=== PATIENT | male | born 1945 | race Caucasian/White ===

== ENCOUNTER 2017-12-17 18:03 | Inpatient (IN) | payer MEDICARE, OTHER ==
[2017-12-17 18:53] LABS: ABS Basophils 0 10^3/ul (0-0.2); ABS Eosinophils 0.2 10^3/ul (0-0.6); ABS Lymphocytes 1.3 10^3/ul (1.0-4.8); ABS Monocytes 0.6 10^3/ul (0-0.8); ABS Neutrophils 5.6 10^3/ul (1.5-7.7); ABS Nucleated RBC 0 10^3/ul; Eosinophil % 2.2 % (0-6); Hematocrit 44 % (42-52); Hemoglobin 14.7 g/dl (14.0-18.0); Lymphocyte % 16.9 % (25-47); Mean Corpuscular HGB Conc 34 g/dl (31-36); Mean Corpuscular Hemoglobin 30 pg (27-31); Mean Corpuscular Volume 90 fL (80-94); Mean Platelet Volume 9 um3 (7.4-10.4); Nucleated Red Blood Cells % 0; Platelet Count 183 10^3/ul (150-450); Red Blood Count 4.83 10^6/ul (4.0-5.4); Red Cell Distribution Width 14 % (10.5-15); White Blood Count 7.6 10^3/ul (3.5-10.8)
[2017-12-17 19:07] LABS: EGFR Non-African American 76.1 (>60)
--- NOTE | 2017-12-17 19:32 | RAD ---
HISTORY: Syncope COMPARISONS: August 30, 2015 VIEWS: 4: Frontal dual-energy and lateral views of the chest. FINDINGS: CARDIOMEDIASTINAL SILHOUETTE: The cardiomediastinal silhouette is normal. DENNIS: The dennis are normal. PLEURA: The costophrenic angles are sharp. No pleural abnormalities are noted. LUNG PARENCHYMA: The lungs are clear. ABDOMEN: The upper abdomen is clear. There is no subphrenic gas. BONES AND SOFT TISSUES: No bone or soft tissue abnormalities are noted. OTHER: None. IMPRESSION: NO ACTIVE CARDIOPULMONARY DISEASE.
[2017-12-17] MEDS ORDERED: Ondansetron INJ* 2 MG/ML VIAL IV PRN (19:51)
[2017-12-17] MEDS ORDERED: NS 0.9% 1000 ML* 1,000 ML IV SCH (20:00)
--- NOTE | 2017-12-17 20:16 | RAD ---
HISTORY: Syncope versus seizure COMPARISONS: None TECHNIQUE: Multiple contiguous axial CT scans were obtained of the head without intravenous contrast. FINDINGS: HEMORRHAGE/INFARCT: There is no hemorrhage or acute infarct. MASSES/SHIFT: There is no mass or shift. EXTRA-AXIAL SPACES: There are no extra-axial fluid collections. SULCI AND VENTRICLES: The sulci and ventricles are normal in size and position for the patient's stated age. CEREBRUM: There are no focal parenchymal abnormalities. BRAINSTEM: There are no focal parenchymal abnormalities. CEREBELLUM: There are no focal parenchymal abnormalities. VESSELS: There is calcification of the cavernous segments of the internal carotid arteries bilaterally. The basilar artery is tortuous. PARANASAL SINUSES: The paranasal sinuses are clear. ORBITS: The orbits are unremarkable. BONES AND SOFT TISSUE: No bone or soft tissue abnormalities are noted. OTHER: None IMPRESSION: NO ACUTE INTRACRANIAL PATHOLOGY.
--- NOTE | 2017-12-17 20:58 | ED ---
Bhavesh Campbell Jennifer, scribed for Cosme Shaver MD on 12/17/17 at 1816 . Syncope/Near Syncope - HPI Summary HPI Summary: The patient is a 72 year old male who presents with two episodes of syncope in the past two days. The patient describes that he was sitting in a chair when it began to feel like he was dreaming, his eyes rolled back, he began snoring and gasping for breath, and then he fainted. There was no warning before the episodes. The patient adds that he had shortness of breath during the episode that felt like a panic attack, but denies shortness of breath in the ED. The patient additionally complains of his left ear being semi-plugged. He denies chest pain. - History Of Current Complaint Time Seen by Provider: 12/17/17 18:08 Hx Obtained From: Patient Onset/Duration: Sudden Onset, Lasting Days - two days, Still Present Timing: Frequency Of Episodes - 2 Context: Witnessed, Loss Of Consciousness Activity At Onset: At Rest Associated Head Trauma: No Aggravating Factor(s): Nothing Alleviating Factor(s): Nothing Associated Signs And Symptoms: Negative - Chest pain,, Shortness Of Breath, Other - Left ear ache - Allergies/Home Medications Allergies/Adverse Reactions: Allergies Allergy/AdvReac Type Severity Reaction Status Date / Time aspirin Allergy See Comment Verified 12/17/17 18:19 Home Medications: Home Medications Atenolol TAB* [Tenormin TAB* 25 MG] 25 mg PO BEDTIME 12/17/17 [History Confirmed 12/17/17] Clopidogrel TAB* [Plavix TAB*] 75 mg PO BEDTIME 12/17/17 [History Confirmed 06/26] Simvastatin TAB(NF) [Zocor(NF)] 20 mg PO BEDTIME 12/17/17 [History Confirmed 06/26] PMH/Surg Hx/FS Hx/Imm Hx Endocrine/Hematology History: Denies: Hx Diabetes Cardiovascular History: Reports: Other Cardiovascular Problems/Disorders - hardening of the arteries Denies: Hx Hypertension - Family History Known Family History: Negative: Diabetes - Social History Hx Tobacco Use: No Review of Systems Positive: Ear Ache - Left ear feels plugged Negative: Chest Pain Positive: Shortness Of Breath Positive: Syncope All Other Systems Reviewed And Are Negative: Yes Physical Exam - Summary Physical Exam Summary: Appearance: Well-appearing, Well-nourished Skin: Warm, Dry, No rash Eyes: Normal, PERRL, EOMI, sclera anicteric ENT: Normal Neck: Supple, nontender Respiratory: Clear to auscultation Cardiovascular: S1, S2, no murmur, no rub, no gallop Abdomen: Soft, nontender, no organomegaly Bowel sounds: Present Musculoskeletal: Normal, Strength/ROM Intact, no edema, pulses symmetrical Neurological: Normal, A&Ox3, cranial nerves II-XII WNL, follows commands, gait not tested, sensation intact to pin and light touch Psychiatric: affect normal, behavior appropriate, dressed appropriately, judgment intact Triage Information Reviewed: Yes Vital Signs Reviewed: Yes Diagnostics - Laboratory Result Diagrams: 12/17/17 18:40 12/17/17 18:40 Lab Statement: Any lab studies that have been ordered have been reviewed, and results considered in the medical decision making process. - Radiology CXR Xray Interpretation: No Acute Changes - NO ACTIVE CARDIOPULMONARY DISEASE. Dr. Shaver has reviewed this report. Radiology Interpretation Completed By: Radiologist - Additional Comments Diagnostic Additional Comments: EKG taken at 18:12. Sinus rhythm at 60 BPM. Trifascicular block, RBBB, left anterior block, prolonged IA interval, left ventricular hypertrophy. Second EKG taken at 18:28. No significant changes. Course/Dx Assessment/Plan: The patient is a 72 year old male who presents with two episodes of syncope in the past two days. In the ED course the patient was given. Bloodwork was obtained. EKG shows sinus rhythm at 60 BPM, trifascicular block, RBBB, left anterior block, prolonged IA interval, and left ventricular hypertrophy. CXR obtained. The patient is diagnosed with syncope and possible complete heart block. The patient was admitted to [facility]. - Diagnoses Provider Diagnoses: Syncope, Possible complete heart block Discharge - Discharge Plan Condition: Good Disposition: ADMITTED TO [facility] Referrals: Jaclyn Hartley MD [Primary Care Provider] - Additional Instructions: RETURN TO THE EMERGENCY DEPARTMENT FOR CHANGING OR WORSENING SYMPTOMS. The documentation as recorded by the Bhavesh guzman Jennifer accurately reflects the service I personally performed and the decisions made by Sivakumar craig Matthew, MD.
[2017-12-17] MEDS ORDERED: Atenolol TAB* 25 MG PO SCH (21:00)
[2017-12-17] MEDS: Heparin VIAL(*) 5000 UNITS/ML VIAL (FIVE THOUSAND) SUBCUT SCH (22:00)
[2017-12-17] MEDS: Atorvastatin* 10 MG TAB PO SCH (22:00)
[2017-12-17] MEDS: Clopidogrel TAB* 75 MG PO SCH (22:00)
--- NOTE | 2017-12-17 23:21 | HP ---
CC: Dr. Hartley; Dr. Wu Baca * HISTORY AND PHYSICAL: DATE OF ADMISSION: 12/17/17 PRIMARY CARE PROVIDER: Dr. Hartley. HUMANE OFFICER: Dr. Wu Baca in [place], [place] at [facility]. CHIEF COMPLAINT: Altered mental status. HISTORY OF PRESENT ILLNESS: Mr. Mars is a 72-year-old male, who has a history of coronary artery disease that is being managed medically, obstructive sleep apnea, and history of visual migraines, who presents to the emergency room after having a second episode of altered mental status in 3 days. The patient states over the last 1 year, he has now had 5 episodes of altered mental status. Most of these have occurred in the distant past 1 year, however, on this past 12/15/17, the patient states that he had had a visual migraine earlier in the day. He then was in a seated upright position when he suddenly felt very lightheaded. He stated that he felt as if he could not control his body. He was reportedly unresponsive per his . The patient contacted his primary care provider and was seen yesterday for an appointment. At that point, nothing new was done. The patient states earlier on the day of admission, the patient was in a seated upright position when he again suddenly started to feel lightheaded. His looked over at him as she noted him to have sonorous respirations and it seemed like his breathing was labored. The next thing she knew, his head was going backwards and his eyes were deviated to the right. The patient came to after a few seconds. He then began to sweat profusely. The patient then again put his head back and his eyes again deviated to the right. At this time, she was standing over top of him and noted that his eyes were open but he was not responding. Again, this lasted for a few seconds. The patient again came back fairly quickly. The patient does state that he felt nausea following these 2 episodes today. Additionally, the patient stated that his breathing felt very shallow after coming to. On Thursday, he noted that he was profusely diaphoretic and had to change his clothes. Today, he was sweaty but it was not as severe. PAST MEDICAL HISTORY: 1. Coronary artery disease. 2. Obstructive sleep apnea. 3. History of visual migraines. 4. Bilateral inguinal hernia repair with the left being repaired x2. 5. Right hand surgery. MEDICATIONS: 1. Zocor 20 mg p.o. q.h.s. 2. Plavix 75 mg p.o. q.h.s. 3. Atenolol 25 mg p.o. q.h.s. ALLERGIES: The patient is sensitive to aspirin in that he gets frequent nose bleeds when he takes this. FAMILY HISTORY: Mom at age of 95 of "old age." Dad at the age of 49 , he had a stroke. SOCIAL HISTORY: The patient smokes an occasional cigar during summer. He drinks roughly 1 beer per evening. 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 He is . His , Gali, is his healthcare proxy. He has 3 children. REVIEW OF SYSTEMS: The patient denies any fevers, chills, or anorexia. No chest pain. No palpitations. No edema. No cough. No true shortness of breath , but again he noted shallow breathing after coming to following the events earlier today. He admitted to nausea as noted above. No abdominal pain. He does state that following these last 2 episodes of altered mental status, he did have to have a bowel movement. He denies any hematochezia, no hematuria, no dysuria, no focal weakness, or sensory loss. The patient's stated that she had him stick out his tongue and smile. She noted no facial asymmetry. He had no slurred speech. The patient does admit to having what sounds to be scintillating scotoma on 12/15/17. No . No joint pains or muscle pains out of ordinary. No rashes. No anxiety or depression. PHYSICAL EXAMINATION GENERAL: The patient is a well-developed, elderly male, sitting up in the stretcher, in no acute distress. VITAL SIGNS: Blood pressure 121/58, pulse 67, respirations 16, temp 96.8, O2 sat 96% on room air. HEENT: Pupils are equal and round. Extraocular muscles intact. Oropharynx is clear. Oral mucosa is moist. There is no submandibular, cervical, or supraclavicular adenopathy. Thyroid is not enlarged. No thyroid nodules noted. PULMONARY: Lungs are clear to auscultation bilaterally. CARDIAC: Normal S1, S2. Heart rate is irregular and on telemetry, it appears that the patient is having atrial bigeminy. There is minimal lower extremity edema bilaterally. ABDOMEN: Bowel sounds are present. Abdomen is soft, nontender, nondistended. MUSCULOSKELETAL: There is no cyanosis or clubbing of the digits. There is full active range of motion of all 4 extremities. NEURO: Cranial nerves II through XII were grossly intact. Sensation is intact to light touch throughout. Strength is 5/5 and symmetric in both upper and lower extremities bilaterally. PSYCH: The patient is alert. He is oriented x3. Affect appears appropriate. SKIN: Warm and dry. There are no rashes. DIAGNOSTIC STUDIES/LAB DATA: WBC 7.6, hemoglobin 14.7, hematocrit 44, platelets 183. Sodium 136, potassium 4.4, chloride 104, CO2 26, BUN 15, creatinine 0.97, glucose 103, calcium 9.2. Bilirubin 0.5, AST 18, ALT 21, alk phos 49. Troponin 0. Albumin 4.0. TSH 3.29. Chest x-ray: No active cardiopulmonary disease. EKG reveals normal sinus rhythm with a right bundle branch block and left anterior fascicular block. ASSESSMENT AND PLAN: Mr. Mars is a 72-year-old male with a history of medically managed coronary artery disease and obstructive sleep apnea, who presented to the emergency room today after having a second episode of altered mental status within 3 days where he begins to feel lightheaded, then has his head go back and eyes deviate to the right followed by profuse diaphoresis and nausea. 1. Altered mental status. The etiology of this is not completely clear. Differential diagnosis includes true seizure versus syncope with convulsion. The patient was in an upright position each time that these episodes happened. The lightheadedness as a prodrome as well as the diaphoresis and nausea make me feel that vasovagal syncope is likely; however, having his head go back and eyes deviate to the right makes me concern for seizure along with the sonorous respirations. The patient will have an echocardiogram and be monitored on telemetry. I will get CT scan of the brain. The patient will also undergo EEG evaluation. A Neurology consultation will be requested. 2. Coronary artery disease. At this point, the patient will be maintained on his usual home medication regimen. He has no complaints. 3. Obstructive sleep apnea. We will continue CPAP for sleep. 4. DVT prophylaxis. According to the Adult Thrombosis Prophylaxis Risk Factor Assessment Guide, a total risk factor score of 3 makes him high risk. He will be placed on heparin 5000 units subcutaneous q.12 hours. 5. Code status is full. Again, his , Gali, is his healthcare proxy. TIME SPENT: Sixty-five minutes was spent admitting this patient. [id number]/[facility] #: [id number] JEOVANY
[2017-12-18] MEDS: Heparin VIAL(*) 5000 UNITS/ML VIAL (FIVE THOUSAND) SUBCUT SCH ×2 (08:48→20:16)
--- NOTE | 2017-12-18 14:19 | ECHO ---
Patient: WILLIAM MAYORGA [facility] Rec#: [id number] : 1945 Date: 12/18/2017 Age: 72y Height: 180.34 cm / 71.0 in Weight: 88.45 kg / 194.9 lbs Sex: M BSA: 2.09 Room#: [facility] Admit Date#: 12/17/2017 Type: Inpatient Referring: Natalia Ziegler DO Reading: Gael Ventura MD [facility]an[facility]ch[facility] Indication: Syncope BP: 111/63 HR: 69 Rhythm: NSR with PACs Findings History: CAD on medical management, TIMOTHY with CPAP, bilateral inguinal hernia. Technical Comments: The study quality is good. Completed at 1015. Left Ventricle: The left ventricular chamber size is mildly dilated. Mild concentric left ventricular hypertrophy is observed.sigmoid septum. Global left ventricular wall motion and contractility are within normal limits. There is normal left ventricular systolic function. The estimated ejection fraction is 55-60%. Abnormal left ventricular diastolic function is observed. Abnormal left ventricular diastolic filling is observed, consistent with impaired relaxation. Left Atrium: The left atrium is mildly dilated. Right Ventricle: Moderator Band present. The right ventricle is moderately dilated. The right ventricular global systolic function is low normal. Right Atrium: The right atrium is mild to moderately dilated. Aortic Valve: The aortic valve is trileaflet. The aortic valve leaflets are mildly thickened. There is mild aortic regurgitation. There is no evidence of aortic stenosis. Mitral Valve: The mitral valve leaflets are mildly thickened.with mild buckling of the leaflets; no definite prolapse. There is mild to moderate mitral regurgitation. There is no evidence of mitral stenosis. Tricuspid Valve: The tricuspid valve leaflets are mildly thickened. There is mild tricuspid regurgitation. The right ventricular systolic pressure is estimated at 39 mmHg. There is evidence of mild pulmonary hypertension. There is no tricuspid stenosis. Pulmonic Valve: The pulmonic valve appears normal. There is trace to mild pulmonic regurgitation. There is no pulmonic stenosis. Pericardium: There is no significant pericardial effusion. Aorta: There is moderate dilatation of the ascending aorta. There is no dilatation of the aortic arch. The aortic root is normal in size. Pulmonary Artery: The main pulmonary artery appears normal. Venous: The inferior vena cava is dilated. There is a greater than 50% respiratory change in the inferior vena cava dimension. Summary: There was not any prior study for comparison. Conclusions Mild concentric left ventricular hypertrophy is observed.sigmoid septum. The estimated ejection fraction is 55-60%. Abnormal left ventricular diastolic filling is observed, consistent with impaired relaxation. The left atrium is mildly dilated. The right ventricle is moderately dilated. The right ventricular global systolic function is low normal. The right atrium is mild to moderately dilated. There is mild aortic regurgitation. There is mild to moderate mitral regurgitation. The mitral valve leaflets are mildly thickened.with mild buckling of the leaflets; no definite prolapse. There is mild tricuspid regurgitation. There is evidence of mild pulmonary hypertension. There is moderate dilatation of the ascending aorta. Measurements Name Value Normal Range RVIDd (AP) 2D 3.3 cm (0.9 - 2.6) RVDdMajor (2D) 6 cm (2.2 - 4.4) RAd ISD 4CH 4.8 cm (3.4 - 4.9) RA (A4C)W 5.9 cm (2.9 - 4.6) IVSd (2D) 1.2 cm (0.6 - 1) LVPWd (2D) 1.1 cm (0.6 - 1) LVIDd (2D) 5.5 cm (3.6 - 5.4) LVIDs (2D) 3.4 cm - LV FS (2D) 38 % (25 - 45) Aortic Annulus 2.1 cm (1.4 - 2.6) Ao root diameter (2D) 3.5 cm (2.1 - 3.5) Ascending Ao 4.1 cm (2.1 - 3.4) Aortic arch 2.7 cm (1.8 - 3.4) LA dimension (AP) 2D 3.8 cm (2.3 - 3.8) LAd ISD 4CH 4.8 cm (2.9 - 5.3) LA ISD 4CH W 4.3 cm (2.5 - 4.5) Name Value Normal Range LA ESV SP 4CH (A/L) 71 ml - LA ESV SP 2CH (A/L) 82 ml - LA ESV BP (A/L) 77 ml - LA ESV BP (A/L) index 40 ml/m2 - LA ESV SP 4CH (MOD) 62 ml - LA ESV SP 2CH (MOD) 75 ml - Name Value Normal Range MV E-wave Vmax 0.62 m/sec - MV deceleration time 215.5 msec - MV A-wave Vmax 1.01 m/sec - MV E:A ratio 0.61 ratio - LV septal e' Vmax 0.05 m/sec - LV lateral e' Vmax 0.07 m/sec - LV E:e' septal ratio 12.4 ratio - LV E:e' lateral ratio 8.86 ratio - Name Value Normal Range AV Vmax 1.4 m/sec - AV VTI 29.56 cm - AV peak gradient 7.47 mmHg - AV mean gradient 4.2 mmHg - LVOT Vmax 1.15 m/sec - LVOT VTI 24.71 cm - LVOT peak gradient 5.31 mmHg - LVOT mean gradient 2.96 mmHg - ESPERANZA Vmax 0.91 m/sec - Name Value Normal Range TR Vmax 2.8 m/sec - TR peak gradient 31 mmHg - RAP 8 mmHg - RVSP 39 mmHg - IVC diameter 2.2 cm - Name Value Normal Range PV Vmax 0.82 m/sec - PV peak gradient 2.71 mmHg -
[2017-12-18] MEDS: Clopidogrel TAB* 75 MG PO SCH (20:16)
[2017-12-18] MEDS: Atorvastatin* 10 MG TAB PO SCH (20:16)
--- NOTE | 2017-12-18 21:13 | PN ---
Subjective Date of Service: 12/18/17 Interval History: Patient has episode of chest discomfort which evolved into 5/10 overnight without ischemic EKG changes. Resolved with movement and attributed to gastrointestinal discomfort. Patient has had no episodes of dizziness of syncope while in the hospital Denies F/C, N/V, SOB, abdominal pain, Diarrhea, Dysuria, Headache, changes in vision, or other pain. Family History: Unchanged from Admission Social History: Unchanged from Admission Past Medical History: Unchanged from Admission Objective Active Medications: Atorvastatin Calcium (Lipitor*) 10 mg PO BEDTIME [facility] Last Admin: 12/18/17 20:16 Dose: 10 mg Clopidogrel Bisulfate (Plavix Tab*) 75 mg PO BEDTIME [facility] Last Admin: 12/18/17 20:16 Dose: 75 mg Heparin Sodium (Porcine) (Heparin Vial(*)) 5,000 units SUBCUT Q12HR [facility] Last Admin: 12/18/17 20:16 Dose: 5,000 units Ondansetron HCl (Zofran Inj*) 4 mg IV Q6H PRN PRN Reason: NAUSEA Oxygen Devices in Use Now: None Appearance: Patient is a 72yo male who appears stated age and is sitting in the bed in NAD. Eyes: No Scleral Icterus, PERRLA Ears/Nose/Mouth/Throat: NL Teeth, Lips, Gums, Clear Oropharnyx, Mucous Membranes Moist Neck: NL Appearance and Movements; NL JVP, Trachea Midline, No Thyroid Enlargement, Masses Respiratory: Symmetrical Chest Expansion and Respiratory Effort, Clear to Auscultation Cardiovascular: NL Sounds; No Murmurs; No JVD, RRR, No Edema Abdominal: NL Sounds; No Tenderness; No Distention, No Hepatosplenomegaly Lymphatic: No Cervical Adenopathy Extremities: No Edema, No Clubbing, Cyanosis Skin: No Rash or Ulcers, No Nodules or Sclerosis Neurological: Alert and Oriented x 3, NL Sensation, NL Muscle Strength and Tone , - - CN II-XII intact Result Diagrams: 12/17/17 18:40 12/17/17 18:40 Assess/Plan/Problems-Billing Assessment: Patient is a 72yo male with a PMH significant for CAD, TIMOTHY and visual migraine who presents with multiple episodes of syncope with epileptiform movements with associated nausea and diaphoresis who was found to have intermittent Mobitz Type II heart block but has been asymptomatic in the hospital. - Patient Problems (1) Syncope Current Visit: Yes Status: Acute Code(s): R55 - SYNCOPE AND COLLAPSE SNOMED Code(s): 041295613 Comment: Appreciate cardiology and neurology input Multiple witnessed episodes of syncope with snoring and neurologic abnormalities. Patient found to have Second Degree Heart Block type II with rates down to the high 40s on telemetry. Also intermittent PVCs. Will stop tenormin and monitor for resolution of bradycardia. Echo unremarkable except for diastolic dysfunction. EEG was normal. Could be due to tachyarrhythmia. 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 Could need pacemaker if recurrance off of tenormin. (2) Coronary artery disease Current Visit: Yes Status: Acute Code(s): I25.10 - ATHSCL HEART DISEASE OF [place] CORONARY ARTERY W/O ANG PCTRS SNOMED Code(s): 73314340 Comment: Unclear history. Possible [place]. States he had previous stress test with Dr. Rivera. Unknown results. 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 Continue Statin and Plavix. Hold Tenormin for bradycardia. (3) Migraine Current Visit: Yes Status: Acute Code(s): G43.909 - MIGRAINE, UNSP, NOT INTRACTABLE, WITHOUT STATUS MIGRAINOSUS SNOMED Code(s): 94588520 Comment: Has Visual migraines. No occurance in the hospital. (4) DVT prophylaxis Current Visit: Yes Status: Acute Code(s): FWE6633 - SNOMED Code(s): 624134327 Comment: Heparin SubQ (5) Full code status Current Visit: Yes Status: Acute Code(s): Z78.9 - OTHER SPECIFIED HEALTH STATUS SNOMED Code(s): 841862597 Status and Disposition: Admitted inpatient.
--- NOTE | 2017-12-19 03:14 | CONS ---
CC: Dr. Hartley; Dr. Wu Baca, [place] CARDIOLOGY CONSULTATION: DATE OF CONSULT: 12/18/17 CONSULTING PROVIDER: UMA Ng. REASON FOR EVALUATION: Syncope, bradycardia. HISTORY OF PRESENT ILLNESS: This is a very pleasant 72-year-old gentleman who is being evaluated for near-syncopal episode and syncopal episodes. He said he has had about 5 or 6 episodes over the last year, feeling lightheaded, nauseated, sweaty. He said they usually last about 3 or 4 minutes. They all occurred when sitting still, not with exertion. He says sometimes it happened before meal or af ter meal. He says that he feels light-headed, sweaty, and nauseous, and it passes in 3 to 4 minutes. He said about 4 days ago, he had an episode that was more pronounced. He said he felt like he was dissociated from his reality and it was witnessed by his . He said that it lasted less than 2 mi nutes, but he had an episode of loss of consciousness during that period of time and his eyes rolled back. Because of these symptoms, he went to see his doctor the following day and a workup was initia nara. Yesterday evening, about 5 o'clock, he had an other episode that was similar. His said he passed out twice during that 2-minute episode, and because of his symptoms he came to the emergency room. He was admitted for monitoring. His EKG shows sinus rhythm, sinus bradycardia with left anter ior hemiblock and right bundle branch block on admission, no acute changes. He also had an echocardi ogram, which revealed mild concentric LVH with normal LV function, EF of 55% to 60%, mild left atrial enlargement, [id number] MR, mild AI, aortic sclerosis, mild TR, moderate dilatation of the asc ending aorta. RV was moderately dilated, RV systolic function low normal, and a mildly elevated PA p ressure at 39. He was admitted for observation and he has been found to have some episodes of 2:1 AV block, one of which occurred at 7:44 a.m. He reports that he is feeling well now. He denies any chest pain. No exertional issues. No orthopn ea or PND. No fevers, chills or sweats. He is being treated for hyperlipidemia. He also gives a hi story of being followed by customer success director for the last several years down in [place] where he lived. 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 He was ev aluated by the customer success director and it was felt that he had not had a heart attack, but he was treated wi th aspirin and atenolol for some reason and also with statin. He said he had negative workup at that time, which included a stress test. 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 He subsequently sa w his doctor in [place] and he said he had an evaluation which somehow determined that he had not had an WI. He denies diabetes. He smokes a cigar occasionally in the [place]. He has 1 beer a day. He drinks 1 cup of coffee a day. He has obstructive sleep apnea visual migraines. PAST SURGICAL HISTORY: Includes bilateral herniorrhaphy and right hand surgery. MEDICATIONS: As an outpatient he was on: 1. Atenolol 25 mg a day. 2. Plavix 75 mg a day. 3. Zocor 20 mg a day. ALLERGIES: He says he has a sensitivity to aspirin, it gives him epistaxis on his current medicines. SOCIAL HISTORY: He is , has 3 children. 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 He is ; has a , Vi . REVIEW OF SYSTEMS: Review of systems x10 was negative, except as above. PHYSICAL EXAMINATION: On physical exam, he is a well-developed, well-nourished gentleman. No appare nt distress. Pulse 71, blood pressure 116/58, O2 saturations 94% on room air. Atraumatic, normoceph alic. Extraocular muscles are intact. Sclerae are anicteric. No significant JVD. Carotids 2+, with out bruits. Cardiac Exam: S1, S2. No clear murmurs, gallops or rubs. Chest: Clear, no CVAT. Abdo men: Bowel sounds present. Nontender, no hepatosplenomegaly. Femoral pulses intact, without bruits . Distal pulses intact. No edema. DIAGNOSTIC STUDIES/LAB DATA: CBC within normal limits. Electrolytes within normal limits. Glucose borderline at 103, that was nonfasting though. Normal TSH, troponin 0.00. EKG revealed sinus bradycardia with left anterior hemiblock, right bundle branch block. Brain CT revealed no acute pathology. Chest x-ray: No active cardiopulmonary disease. IMPRESSION: My impression is that Mr. Mars has episodes of syncope or near- syncope of unclear etio logy. He also is noted to have sinus bradycardia, left anterior hemiblock with bundle branch block, and intermittent 2:1 AV block, second- degree AV block, on his telemetry here. I did discuss with e patient that the bradyarrhythmia could potentially explain his symptoms. However, tachyarrhythmias or noncardiac causes are also a possibility. For the time being, I would recommend the followin. I would concur with holding his atenolol now and observing for resolution of his AV block. 2. If he continues to have AV block, we would consider a pacemaker given his bifascicular block and intermittent second-degree AV block. 3. If his AV conduction abnormality is resolved, we would consider an event monitor or implantable l oop monitor to be able to document his rhythm during episodes of syncope. 4. We will try to obtain the records from his prior customer success director to establish basis for his cardiac evaluations in the past and his treatment. 5. I will consider repeat evaluation for ischemia with a functional stress test at some point. 6. He was advised of potential health risks of smoking. Further recommendation will depend on the clinical course. [id number]/[facility] #: [id number]
[2017-12-19 06:05] LABS: EGFR Non-African American 79.9 (>60)
[2017-12-19] MEDS: Heparin VIAL(*) 5000 UNITS/ML VIAL (FIVE THOUSAND) SUBCUT SCH ×2 (10:37→20:48)
--- NOTE | 2017-12-19 13:18 | EEG ---
ELECTROENCEPHALOGRAPHY: DATE OF STUDY: 12/18/17 LOCATION: He is an inpatient. REFERRING PROVIDER: Natalia Ziegler MD CLINICAL HISTORY: Episodes of unresponsiveness. Rule out seizures. MEDICATIONS: Include: 1. Tenormin. 2. Subcutaneous heparin. 3. Atorvastatin. 4. Plavix. REPORT: This 16-channel EEG is remarkable for background rhythms at the onset of the tracing consisting of a reasonably well formed alpha rhythm in the posterior derivations at about 10 cycles per second, which is symmetric and suppressed by eye opening. Low voltage beta rhythms are seen bifrontally. The patient drowses soon into the recording with vertex and bitemporal slowing. The patient drowses and intermittently sleeps through large portions of the tracing. Sleep spindles are seen occasionally indicative of stage II sleep. POSTS are also noted occasionally. Activation procedures are not attempted. The EKG lead during the tracing shows frequent ectopy and occasional pauses up to 1.5 to 2 seconds. CLINICAL INTERPRETATION: Normal EEG. There are no epileptiform features in this recording. There is frequent ectopy and occasional pauses on the EKG lead of this recording. [id number]/[facility] #: [id number] [facility] CENTERCatrachita
--- NOTE | 2017-12-19 16:58 | PN ---
Subjective Date of Service: 12/19/17 Interval History: Patient complains of fogginess and lightheadedness on standing around 7pm yesterday. Patient denies changes in vision, palpitations, chest pain, or other associated symptoms such as diaphoresis. Tele showed 2:1 HB around that time. Patient denies new symptoms such as F/C, N/V, abdominal pain, diarrhea, or other pain. Patient discussed pacemaker with Dr. Ventura and the plan is now to have that done on Thursday. Family History: Unchanged from Admission Social History: Unchanged from Admission Past Medical History: Unchanged from Admission Objective Active Medications: Atorvastatin Calcium (Lipitor*) 10 mg PO BEDTIME [facility] Last Admin: 12/18/17 20:16 Dose: 10 mg Clopidogrel Bisulfate (Plavix Tab*) 75 mg PO BEDTIME [facility] Last Admin: 12/18/17 20:16 Dose: 75 mg Heparin Sodium (Porcine) (Heparin Vial(*)) 5,000 units SUBCUT Q12HR [facility] Last Admin: 12/19/17 10:37 Dose: 5,000 units Ondansetron HCl (Zofran Inj*) 4 mg IV Q6H PRN PRN Reason: NAUSEA Vital Signs - 8 hr 12/19/17 12/19/17 12:51 15:39 Temperature 98.3 F 98.0 F Pulse Rate 81 70 Respiratory 16 16 Rate Blood Pressure 117/80 146/75 (mmHg) O2 Sat by Pulse 95 95 Oximetry Oxygen Devices in Use Now: None Appearance: Patient is a 72yo male who appears stated age and is sitting in the bed in [facility]. Eyes: No Scleral Icterus, PERRLA Ears/Nose/Mouth/Throat: NL Teeth, Lips, Gums, Clear Oropharnyx, Mucous Membranes Moist Neck: NL Appearance and Movements; NL JVP, Trachea Midline, No Thyroid Enlargement, Masses Respiratory: Symmetrical Chest Expansion and Respiratory Effort, Clear to Auscultation Cardiovascular: NL Sounds; No Murmurs; No JVD, No Edema, - - Irregular rhythm consistent with occasional PACs and Dropped beats. Abdominal: NL Sounds; No Tenderness; No Distention, No Hepatosplenomegaly Lymphatic: No Cervical Adenopathy Extremities: No Edema, No Clubbing, Cyanosis Skin: No Rash or Ulcers, No Nodules or Sclerosis Neurological: Alert and Oriented x 3, NL Sensation, NL Muscle Strength and Tone Result Diagrams: 12/17/17 18:40 12/19/17 05:35 Assess/Plan/Problems-Billing Assessment: Patient is a 72yo male with a PMH significant for CAD, TIMOTHY and visual migraine who presents with multiple episodes of syncope with epileptiform movements with associated nausea and diaphoresis who was found to have intermittent Mobitz Type II heart block with dizziness on the eveing of 12/18 after being off Tenormin for 24 hours. Plan with cardiology for pacemaker Thursday. - Patient Problems (1) Syncope Current Visit: Yes Status: Acute Code(s): R55 - SYNCOPE AND COLLAPSE SNOMED Code(s): 193702765 Comment: Appreciate cardiology and neurology input Multiple witnessed episodes of syncope with snoring and neurologic abnormalities. Patient found to have Second Degree Heart Block type II with rates down to the high 40s on telemetry. Also intermittent PVCs and PACs. Tenormin stopped for 36 hours with persistent bradycardia and intermittent AV block. Echo unremarkable except for diastolic dysfunction. EEG was normal. Could be due to tachyarrhythmia but no evidence on that on telemetry except occasional ectopy. Has Bifasicular block on EKG indicating poor conducting system. Plan for pacemaker Thursday due to persistent block. (2) Coronary artery disease Current Visit: Yes Status: Acute Code(s): I25.10 - ATHSCL HEART DISEASE OF [place] CORONARY ARTERY W/O ANG PCTRS SNOMED Code(s): 29207999 Comment: Unclear history. Possible AK. States he had previous stress test with Dr. Rivera. Unknown results. Will attempt to get records from [place] package pick up. Continue Statin and Plavix. Hold Tenormin for bradycardia. (3) Migraine Current Visit: Yes Status: Acute Code(s): G43.909 - MIGRAINE, UNSP, NOT INTRACTABLE, WITHOUT STATUS MIGRAINOSUS SNOMED Code(s): 72182661 Comment: Has Visual migraines. No occurance in the hospital. (4) DVT prophylaxis Current Visit: Yes Status: Acute Code(s): ZMR3690 - SNOMED Code(s): 545801817 Comment: Heparin SubQ (5) Full code status Current Visit: Yes Status: Acute Code(s): Z78.9 - OTHER SPECIFIED HEALTH STATUS SNOMED Code(s): 345176981 Status and Disposition: Admitted inpatient.
[2017-12-19] MEDS: Clopidogrel TAB* 75 MG PO SCH (20:48)
[2017-12-19] MEDS: Atorvastatin* 10 MG TAB PO SCH (20:48)
[2017-12-20] MEDS: Heparin VIAL(*) 5000 UNITS/ML VIAL (FIVE THOUSAND) SUBCUT SCH ×2 (07:52→22:05)
[2017-12-20 12:04] LABS: ABS Basophils 0.1 10^3/ul (0-0.2); ABS Eosinophils 0.1 10^3/ul (0-0.6); ABS Lymphocytes 1.4 10^3/ul (1.0-4.8); ABS Monocytes 0.7 10^3/ul (0-0.8); ABS Nucleated RBC 0 10^3/ul; Eosinophil % 1.5 % (0-6); Hematocrit 48 % (42-52); Lymphocyte % 16.8 % (25-47); Mean Corpuscular HGB Conc 33 g/dl (31-36); Mean Corpuscular Hemoglobin 31 pg (27-31); Mean Corpuscular Volume 91 fL (80-94); Mean Platelet Volume 9 um3 (7.4-10.4); Nucleated Red Blood Cells % 0.1; Platelet Count 199 10^3/ul (150-450); Red Blood Count 5.24 10^6/ul (4.0-5.4); Red Cell Distribution Width 14 % (10.5-15); White Blood Count 8.3 10^3/ul (3.5-10.8)
[2017-12-20 12:11] LABS: INR 0.9 (0.77-1.02)
[2017-12-20 12:17] LABS: EGFR Non-African American 78.9 (>60)
--- NOTE | 2017-12-20 17:42 | PN ---
Subjective Date of Service: 12/20/17 Interval History: Feels good today. He has been walking, showering with no lightheadedness, dizziness, palpitations, or chest pain. Family History: Unchanged from Admission Social History: Unchanged from Admission Past Medical History: Unchanged from Admission Objective Active Medications: Atorvastatin Calcium (Lipitor*) 10 mg PO BEDTIME [facility] Last Admin: 12/19/17 20:48 Dose: 10 mg Clopidogrel Bisulfate (Plavix Tab*) 75 mg PO BEDTIME [facility] Last Admin: 12/19/17 20:48 Dose: 75 mg Heparin Sodium (Porcine) (Heparin Vial(*)) 5,000 units SUBCUT Q12HR [facility] Last Admin: 12/20/17 07:52 Dose: 5,000 units Ondansetron HCl (Zofran Inj*) 4 mg IV Q6H PRN PRN Reason: NAUSEA Vital Signs - 8 hr 12/20/17 12/20/17 11:29 15:57 Temperature 97.6 F 98.4 F Pulse Rate 83 78 Respiratory 16 16 Rate Blood Pressure 120/80 114/88 (mmHg) O2 Sat by Pulse 96 96 Oximetry Oxygen Devices in Use Now: None Appearance: well appearing Eyes: No Scleral Icterus, PERRLA, - - no nystagmus Ears/Nose/Mouth/Throat: NL Teeth, Lips, Gums Neck: NL Appearance and Movements; NL JVP Respiratory: Symmetrical Chest Expansion and Respiratory Effort, Clear to Auscultation Cardiovascular: NL Sounds; No Murmurs; No JVD, RRR Abdominal: NL Sounds; No Tenderness; No Distention Lymphatic: No Cervical Adenopathy Extremities: No Edema Skin: No Rash or Ulcers Neurological: Alert and Oriented x 3 Result Diagrams: 12/20/17 11:55 12/20/17 11:55 Assess/Plan/Problems-Billing Assessment: Patient is a 72yo male with a PMH significant for CAD, TIMOTHY and visual migraine who presents with multiple episodes of syncope with epileptiform movements with associated nausea and diaphoresis who was found to have intermittent Mobitz Type II heart block with dizziness on the eveing of 12/18 after being off Tenormin for 24 hours. Plan with cardiology for pacemaker Thursday. - Patient Problems (1) Mobitz type 2 second degree atrioventricular block Current Visit: Yes Status: Acute Code(s): I44.1 - ATRIOVENTRICULAR BLOCK, SECOND DEGREE SNOMED Code(s): 61163348 Comment: plan for pacemaker tomorrow (2) Coronary artery disease Current Visit: Yes Status: Acute Code(s): I25.10 - ATHSCL HEART DISEASE OF [place] CORONARY ARTERY W/O ANG PCTRS SNOMED Code(s): 68473299 Comment: patient reports history of "widowmaker" intervention years ago for which he takes plavix (no ASA due to nosebleeds). continue statin. (3) Syncope Current Visit: Yes Status: Acute Code(s): R55 - SYNCOPE AND COLLAPSE SNOMED Code(s): 989984998 Comment: I suspect these several episodes over the past few months have been from a high degree heart block. Status and Disposition: inpatient, pacer tomorrow.
[2017-12-20] MEDS: Atorvastatin* 10 MG TAB PO SCH (22:05)
[2017-12-20] MEDS: Acetaminophen TAB* 325 MG PO PRN (22:19)
[2017-12-21] MEDS: Clopidogrel TAB* 75 MG PO SCH (05:57)
[2017-12-21 06:53] LABS: ABS Basophils 0 10^3/ul (0-0.2); ABS Eosinophils 0.2 10^3/ul (0-0.6); ABS Lymphocytes 1.5 10^3/ul (1.0-4.8); ABS Monocytes 0.8 10^3/ul (0-0.8); ABS Neutrophils 5.5 10^3/ul (1.5-7.7); ABS Nucleated RBC 0 10^3/ul; Eosinophil % 2.6 % (0-6); Hematocrit 46 % (42-52); Hemoglobin 15.6 g/dl (14.0-18.0); Lymphocyte % 18.9 % (25-47); Mean Corpuscular HGB Conc 34 g/dl (31-36); Mean Corpuscular Hemoglobin 31 pg (27-31); Mean Corpuscular Volume 91 fL (80-94); Mean Platelet Volume 10 um3 (7.4-10.4); Nucleated Red Blood Cells % 0.1; Platelet Count 190 10^3/ul (150-450); Red Blood Count 5.08 10^6/ul (4.0-5.4); Red Cell Distribution Width 14 % (10.5-15)
[2017-12-21 07:01] LABS: INR 0.94 (0.77-1.02)
[2017-12-21 07:12] LABS: EGFR Non-African American 78.9 (>60)
[2017-12-21] MEDS: Heparin VIAL(*) 5000 UNITS/ML VIAL (FIVE THOUSAND) SUBCUT SCH ×2 (08:26→21:34)
[2017-12-21] MEDS ORDERED: Lidocaine 1% INJ* 10 MG/ML 30 ML SDV ONE (10:12)
[2017-12-21] MEDS ORDERED: ceFAZolin 1 GM VIAL(*) 1 GM in NS 0.9% 50 ML* 50 ML IVPB ONE (10:47)
[2017-12-21] MEDS ORDERED: ceFAZolin 1 GM VIAL(*) 2 GM in NS 0.9% 100 ML* 100 ML IVPB ONE (10:49)
[2017-12-21] MEDS ORDERED: Triamcinolone 0.5% OINT * 15 GM TUBE TOPICAL PRN (10:53)
[2017-12-21] MEDS ORDERED: fentaNYL* 50 MCG/ML 2 ML VIAL (100 MCG VIAL) ONE (10:54)
[2017-12-21] MEDS ORDERED: Midazolam* 1 MG/ML 10 ML VIAL (10 MG) ONE (10:55)
[2017-12-21] MEDS ORDERED: ceFAZolin 2 GM in NS 0.9% 100 ml IVPB ONE (11:00)
[2017-12-21] MEDS ORDERED: ceFAZolin 2 GM PREMIX (*) 2 GM/50 ML BAG IVPB ONE (11:00)
[2017-12-21] MEDS ORDERED: ceFAZolin VIAL 1 GM in NS *SYRINGE * * 10 ML ONE (11:00)
[2017-12-21] MEDS ORDERED: oxyCODONE/Acetamin 5/325 MG* TAB PO PRN (11:48)
[2017-12-21] MEDS ORDERED: ceFAZolin 1 GM VIAL(*) 1 GM in NS 0.9% 50 ML* 50 ML IVPB SCH (14:00)
--- NOTE | 2017-12-21 14:09 | RAD ---
Indication: Syncope. Single frontal view of the chest performed at 1305 hours was reviewed. Comparison is made with previous exam dated December 17, 2017. No mediastinal shift is noted. Heart is of normal size and configuration. Lung blank appear clear. IMPRESSION: NO ACTIVE CARDIOPULMONARY DISEASE IS NOTED.
--- NOTE | 2017-12-21 17:06 | PN ---
Subjective Date of Service: 12/21/17 Interval History: pacer placed this morning, he is now walking the hallways and feels well. no lightheadedness or dizziness, no palpitations or chest pain except some soreness at the insertion site. Family History: Unchanged from Admission Social History: Unchanged from Admission Past Medical History: Unchanged from Admission Objective Active Medications: Acetaminophen (Tylenol Tab*) 650 mg PO Q4H PRN PRN Reason: PAIN Last Admin: 12/20/17 22:19 Dose: 650 mg Atorvastatin Calcium (Lipitor*) 10 mg PO BEDTIME [facility] Last Admin: 12/20/17 22:05 Dose: 10 mg Heparin Sodium (Porcine) (Heparin Vial(*)) 5,000 units SUBCUT Q12HR [facility] Last Admin: 12/21/17 08:26 Dose: Not Given Cefazolin Sodium/Dextrose (Kefzol 1 Gm In Dextrose Duplex (*)) 1 gm in 50 mls @ 200 mls/hr IVPB Q8H [facility] Ondansetron HCl (Zofran Inj*) 4 mg IV Q6H PRN PRN Reason: NAUSEA Oxycodone/Acetaminophen (Percocet 5/325 Tab*) 1 tab PO Q4H PRN PRN Reason: PAIN Triamcinolone Acetonide (Triamcinolone 0.5% Oint *) 1 applic TOPICAL BID PRN PRN Reason: ITCHING Vital Signs - 8 hr 12/21/17 12/21/17 12/21/17 12:35 12:48 12:49 Temperature 97.2 F 99.0 F Pulse Rate 44 58 Respiratory 16 18 Rate Blood Pressure 143/68 112/65 (mmHg) O2 Sat by Pulse 96 95 95 Oximetry 12/21/17 12/21/17 12/21/17 13:19 13:54 14:17 Temperature 98.4 F 98.5 F 98.5 F Pulse Rate 38 101 56 Respiratory 18 18 16 Rate Blood Pressure 124/61 130/80 125/70 (mmHg) O2 Sat by Pulse 95 95 97 Oximetry 12/21/17 12/21/17 12/21/17 14:19 15:19 15:20 Temperature 98.8 F Pulse Rate 96 Respiratory 20 Rate Blood Pressure 97/75 (mmHg) O2 Sat by Pulse 97 97 97 Oximetry 12/21/17 16:25 Temperature 98.5 F Pulse Rate 97 Respiratory 16 Rate Blood Pressure 118/53 (mmHg) O2 Sat by Pulse 93 Oximetry Oxygen Devices in Use Now: None Appearance: well appearing, nontoxic Eyes: No Scleral Icterus Ears/Nose/Mouth/Throat: NL Teeth, Lips, Gums Neck: NL Appearance and Movements; NL JVP Respiratory: Symmetrical Chest Expansion and Respiratory Effort, Clear to Auscultation Cardiovascular: NL Sounds; No Murmurs; No JVD, RRR, - - left chest wall pressure dressing in place, left arm immobilized Abdominal: NL Sounds; No Tenderness; No Distention, No Hepatosplenomegaly Lymphatic: No Cervical Adenopathy Extremities: No Edema Skin: No Rash or Ulcers Neurological: Alert and Oriented x 3 Result Diagrams: 12/21/17 06:16 12/21/17 06:16 Assess/Plan/Problems-Billing Assessment: Patient is a 72yo male with a PMH significant for CAD, TIMOTHY and visual migraine who presents with multiple episodes of syncope associated with nausea and diaphoresis who was found to have intermittent Mobitz Type II heart block with dizziness on the evening of 12/18 after being off Tenormin for 24 hours. - Patient Problems (1) Mobitz type 2 second degree atrioventricular block Current Visit: Yes Status: Acute Code(s): I44.1 - ATRIOVENTRICULAR BLOCK, SECOND DEGREE SNOMED Code(s): 00544699 Comment: s/p pacer this morning postop cxr shows single-lead pacer continue compression dressing and immobilization for now he declines pain meds (2) Coronary artery disease Current Visit: Yes Status: Acute Code(s): I25.10 - ATHSCL HEART DISEASE OF [place] CORONARY ARTERY W/O ANG PCTRS SNOMED Code(s): 53763582 Comment: patient reports history of "widowmaker" intervention years ago for which he takes plavix (no ASA due to nosebleeds). continue statin. (3) Syncope Current Visit: Yes Status: Acute Code(s): R55 - SYNCOPE AND COLLAPSE SNOMED Code(s): 203655616 Comment: I suspect these several episodes over the past few months have been from a high degree heart block. Status and Disposition: inpatient,continue telemetry tonight
[2017-12-21] MEDS: Acetaminophen TAB* 325 MG PO PRN (21:30)
[2017-12-21] MEDS: Atorvastatin* 10 MG TAB PO SCH (21:34)
[2017-12-21] MEDS: ceFAZolin 1 GM in Dextrose (*) 1 GM/50 ML BAG IVPB SCH (21:34)
[2017-12-22] MEDS: ceFAZolin 1 GM in Dextrose (*) 1 GM/50 ML BAG IVPB SCH (05:42)
[2017-12-22] MEDS: Heparin VIAL(*) 5000 UNITS/ML VIAL (FIVE THOUSAND) SUBCUT SCH (09:40)
--- NOTE | 2017-12-22 10:36 | RAD ---
HISTORY: Status post device implant COMPARISONS: December 21, 2017 VIEWS: 4: Frontal dual-energy and lateral views of the chest. FINDINGS: CARDIOMEDIASTINAL SILHOUETTE: The cardiomediastinal silhouette is normal. DENNIS: The dennis are normal. PLEURA: The costophrenic angles are sharp. No pleural abnormalities are noted. LUNG PARENCHYMA: The lungs are clear. ABDOMEN: The upper abdomen is clear. There is no subphrenic gas. BONES AND SOFT TISSUES: No bone or soft tissue abnormalities are noted. OTHER: A left-sided pacemaker is noted. IMPRESSION: NO ACTIVE CARDIOPULMONARY DISEASE.
[2017-12-22 11:38] VITALS: BP 104/68
--- NOTE | 2017-12-22 14:40 | OP ---
CC: Gael Ventura MD OPERATIVE REPORT: DATE OF OPERATION: 12/21/17. DATE OF : 45. SURGEON: Daniel amaya MD. ANESTHESIA: Local anesthesia with conscious sedation. PRE-OP DIAGNOSES: Second degree heart block and syncope. POST-OP DIAGNOSES: Second degree heart block and syncope. OPERATIVE PROCEDURE: Dual-chamber pacemaker implantation. ESTIMATED BLOOD LOSS: Nil. COMPLICATIONS: None. INDICATIONS: The patient is a 72-year-old gentleman with a history of right bundle branch block and left anterior fascicular block who was admitted to the hospital with syncope. He was found to have 2 :1 heart block. Permanent pacemaker was recommended. DESCRIPTION OF PROCEDURE: The patient was brought to the procedure room in a fasting state. Informe d consent had been obtained prior to the procedure. All labs had been reviewed. The patient was gege manish supine on the procedure table. His left deltopectoral area was cleaned and draped in the usual f ashion. 1% lidocaine was used for local anesthesia. Using ultrasound guidance, the axillary vein wa s entered via a modified Seldinger technique and a guidewire was placed. The second guidewire was pl aced in the same technique. A 4-cm incision was made in the pectoral area, blunt dissection was lockhart ied down to the pectoral fascia. A pocket was fashioned for the pacemaker. Over the first guidewire , a 7-Hungarian sheath introducer was placed through which a right ventricular lead was advanced to the RV apex. The right ventricular lead is a Medtronic model 5076, serial number [id number]. It had an R-wave sensitivity of 4.9, impedance 1442 ohms, threshold 0.7 volts at 0.5 milliseconds. The ventric ular lead was then sutured to the pectoral fascia using 0 silk. Over the second guidewire, a 7-Frenc h sheath introducer was placed through which a right atrial lead was advanced to the high right atriu m. The atrial lead was a Medtronic model 5076 serial number [id number]. It had a P-wave sensitivity of 1.6, impedance 750 ohms, threshold 2.5 volt at 0.5 milliseconds (at the end of the procedure the t hreshold was 1.5 volts at 0.5 milliseconds). The pocket was flushed with antibiotic-infused normal s betito. A generator was attached appropriately to the ventricular leads and the atrial leads. Device is a [employer] model A2DR01 serial number [id number]. The device was placed into the pocket. The rose rgical incision was closed in 3 layers. The patient was returned to his room in stable condition. [id number]/[facility] #: [id number]
--- NOTE | 2017-12-23 01:14 | DS ---
DISCHARGE SUMMARY: DATE OF ADMISSION: 12/17/17 DATE OF DISCHARGE: 12/22/17 ADMITTING PROVIDER: Natalia Ziegler DO PRIMARY CARE PHYSICIAN: Dr. Hartley. PRIMARY CRUISE COUNSELOR: Dr. Wu Baca [place]. CONSULTING CRUISE COUNSELOR: Dr. Ventura. ATTENDING PHYSICIAN: Flynn Perez MD CHIEF COMPLAINT: Altered mental status, syncope. PRINCIPAL DIAGNOSIS: Syncope in the setting of Mobitz type II heart block, status post permanent pacemaker, 12/21/17. HISTORY OF PRESENT ILLNESS AND HOSPITAL COURSE: Mr. Mars is a 72-year-old male with past medical history of coronary artery disease, obstructive sleep apnea, visual migraines, presents with second episode of altered mental status within 3 days, and 5 episodes over the last year. Recently, he had a visual migraine 2 days prior to admission. He had episode of suddenly feeling very lightheaded and that he could not control his body and then further was unresponsive per his . He followed up with his primary care provider a day prior to admission and then again had another episode the morning of admission with lightheadedness. His head then dropped backwards, eyes were deviated to the right. He began to sweat profusely, again was not responsive for a few seconds, but came back fairly quickly. He felt nausea after these 2 episodes. He is being admitted for the altered mental status and syncope. There was some concern initially for a possible seizure versus cardiogenic. He had a CTA of his head without contrast, which showed no acute intracranial pathology. Dr. 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 His atenolol was held until the PPM. The patient went ahead with a permanent pacemaker placement with Dr. Carver on 12/21/17 and was without complication, pacing settings seemed appropriate, and will follow with Dr. Carver. Post-op chest x-ray showed no complications. He will be following up with Dr. Ventura as his local primary roller hand and should follow up with Dr. Carver as well. He needs to be on Keflex 500 mg 3 times a day for 3 days postoperatively, should follow up with Dr. Hartley as well. DISCHARGE MEDICATIONS: Include: 1. Keflex 500 mg p.o. t.i.d. for 3 days. 2. Simvastatin 20 mg p.o. q.h.s. 3. Atenolol 25 mg p.o. q.h.s. 4. Plavix 75 mg p.o. q.h.s. DISCHARGE DIET: Heart healthy. ACTIVITY LEVEL: Standard pacemaker precautions without lifting his left arm more than 5 pounds for 1 month. No large movements or reaching such as gardening, golfing, swimming, bowling. No contact sports. Resume driving 7 days after insertion. Avoid tubs or bath or swimming for 10 days, doing a shower or let the water run over the site, do not scrub, pat dry. FOLLOW-UP: Please follow up with Dr. Carver, Dr. Ventura, and Dr. Hartley. TIME SPENT: On discharge was 35 minutes. [id number]/[facility] #: [id number] JEOVANY
== END 2017-12-22 13:30 | disposition home or self-care (01) | DRG 244 ==
LOC: ED 18:03 → MEDTELE 19:50 → OBSVTOIN 12-18 18:56 → MEDTELE 12-19 23:53
PROVIDERS: ADMIT Hospitalist; ATTEND Internal Medicine
PROC: 5A09357 Assistance with Respiratory Ventilation, Less than 24 Consecutive Hours, Continuous Positive Airway Pressure (ICD-10-PCS; 2017-12-18)
PROC: 4A10X4Z Monitoring of Central Nervous Electrical Activity, External Approach (ICD-10-PCS; 2017-12-18)
PROC: 02H63JZ Insertion of Pacemaker Lead into Right Atrium, Percutaneous Approach (ICD-10-PCS; 2017-12-21)
PROC: 02HK3JZ Insertion of Pacemaker Lead into Right Ventricle, Percutaneous Approach (ICD-10-PCS; 2017-12-21)
PROC: 0JH606Z Insertion of Pacemaker, Dual Chamber into Chest Subcutaneous Tissue and Fascia, Open Approach (ICD-10-PCS; principal; 2017-12-21 07:00)
DX: I44.1 Atrioventricular block, second degree (principal); I08.3 Combined rheumatic disorders of mitral, aortic and tricuspid valves; I25.10 Atherosclerotic heart disease of native coronary artery without angina pectoris; I45.2 Bifascicular block; G43.809 Other migraine, not intractable, without status migrainosus; I77.819 Aortic ectasia, unspecified site; E78.5 Hyperlipidemia, unspecified; G47.33 Obstructive sleep apnea (adult) (pediatric); Z82.3 Family history of stroke; Z72.0 Tobacco use; Z88.8 Allergy status to other drugs, medicaments and biological substances; Z72.89 Other problems related to lifestyle; Z79.02 Long term (current) use of antithrombotics/antiplatelets
CPT/HCPCS: 33208; 36415; 70450; 71045; 71046; 80048; 80053; 84443; 84484; 85025; 85610; 93005; 93306; 94660; 94760; 95819; 96374; 99156; 99157; 99284; A9270-GY; C1785; C1898; G0378; J0690; J1644; J2250; J3010

== ENCOUNTER 2018-04-08 13:10 | Emergency (ER) | payer MEDICARE, OTHER ==
[2018-04-08 13:56] LABS: ABS Basophils 0 10^3/ul (0-0.2); ABS Eosinophils 0.2 10^3/ul (0-0.6); ABS Lymphocytes 1.4 10^3/ul (1.0-4.8); ABS Monocytes 0.7 10^3/ul (0-0.8); ABS Neutrophils 4.4 10^3/ul (1.5-7.7); ABS Nucleated RBC 0 10^3/ul; Eosinophil % 3.4 % (0-6); Hematocrit 45 % (42-52); Hemoglobin 15.2 g/dl (14.0-18.0); Lymphocyte % 20.5 % (25-47); Mean Corpuscular HGB Conc 34 g/dl (31-36); Mean Corpuscular Hemoglobin 30 pg (27-31); Mean Corpuscular Volume 90 fL (80-94); Mean Platelet Volume 9.1 um3 (7.4-10.4); Nucleated Red Blood Cells % 0; Platelet Count 180 10^3/ul (150-450); Red Cell Distribution Width 14 % (10.5-15); White Blood Count 6.7 10^3/ul (3.5-10.8)
[2018-04-08 14:21] LABS: EGFR Non-African American 92.4 (>60)
[2018-04-08 16:05] LABS: Urine Appearance Clear; Urine Blood Negative (Negative); Urine Color Yellow; Urine Ketones Negative (Negative); Urine Protein Negative (Negative); Urine Specific Gravity 1.009 (1.010-1.030); Urine Urobilinogen Negative (Negative)
--- NOTE | 2018-04-08 17:25 | ED ---
Wei Campbell Jade, scribed for Angel Gordon on 04/08/18 at 1411 . Dizziness - HPI Summary HPI Summary: Pt is a 72 y/o male who presents to the ED s/p near syncopal episode today at noon. Pt states he felt lightheaded so he sat down, but denies any LOC. Episode lasted for a few seconds, then spontaneously resolved. Pt states he feels fine now, and denies any weakness, numbness, CP, abdominal pain, or PERALTA. He states he had a similar episode about 3 months ago, which prompted a Medtronic pacemaker to be placed. Pt is supposed to see the pacemaker human service technician for adjustments in April. - History Of Current Complaint Chief Complaint: EDDizziness Stated Complaint: SYNCOPE Time Seen by Provider: 04/08/18 13:52 Hx Obtained From: Patient Onset/Duration: Resolved, Suddenly - This morning Timing: Seconds Severity Currently: None Character: Lightheaded Aggravating Factor(s): Nothing Alleviating Factor(s): Other - Sitting down Associated Signs And Symptoms: Positive: Other: - NEGATIVE: weakness, numbness, chest pain, abdominal pain, headache Related History: Similar Episode/Dx as - December of this year - syncopal episode - Allergies/Home Medications Allergies/Adverse Reactions: Allergies Allergy/AdvReac Type Severity Reaction Status Date / Time aspirin Allergy See Comment Verified 12/17/17 18:19 PMH/Surg Hx/FS Hx/Imm Hx Endocrine/Hematology History: Denies: Hx Anticoagulant Therapy, Hx Blood Disorders, Hx Diabetes Cardiovascular History: Reports: Other Cardiovascular Problems/Disorders - hardening of the arteries Denies: Hx Angioplasty, Hx Cardiac Arrest, Hx Hypertension, Hx Pacemaker/ICD , Hx Rheumatic Fever Respiratory History: Denies: Hx Bronchopulmonary Dysplasia, Hx Chronic Obstructive Pulmonary Disease (COPD), Hx Pulmonary Embolism, Hx Seasonal Allergies GI History: Denies: Hx Crohn's Disease, Hx Gastroesophageal Reflux Disease, Hx Gastrointestinal Bleed, Hx Hiatal Hernia, Hx Pyloric Stenosis History: Denies: Hx Benign Prostatic Hyperplasia, Hx Kidney Infection Musculoskeletal History: Denies: Hx Congenital Bone Abnormalities, Hx Orthopedic Injury, Hx Osteoporosis, Hx Tendonitis Sensory History: Reports: Hx Contacts or Glasses - Reading Denies: Hx Eye Injury, Hx Glaucoma, Hx Hearing Aid Opthamlomology History: Reports: Hx Contacts or Glasses - Reading Denies: Hx Eye Injury, Hx Glaucoma Neurological History: Denies: Hx Headaches, Hx Nerve Disease, Other Neuro Impairments/Disorders Psychiatric History: Denies: Hx Autism, Hx Oppositional Titus Disorder, Hx Community Mental Health Tx, Hx Schizophrenia - Cancer History Hx Palliative Cancer Treatment: No - Surgical History Hx Anesthesia Reactions: No Infectious Disease History: No Infectious Disease History: Denies: Hx of Known/Suspected MRSA, Hx Known/Suspected VRSA, Traveled Outside the [place] in Last 30 Days - Family History Known Family History: Negative: Diabetes - Social History Alcohol Use: Occasionally Substance Use Type: Reports: None Hx Tobacco Use: No Smoking Status (MU): Former Smoker Review of Systems Negative: Chest Pain Negative: Abdominal Pain Positive: Syncope - Near syncope/lightheadedness [employer]PLANE [employer] - resolved. Negative: Headache, Weakness, Numbness All Other Systems Reviewed And Are Negative: Yes Physical Exam - Summary Physical Exam Summary: Appearance: Well appearing, no pain distress Skin: warm, dry, reflects adequate perfusion Head/face: normal Eyes: EOMI, SANDY ENT: normal Neck: supple, non-tender Respiratory: CTA, breath sounds present Cardiovascular: RRR, pulses symmetrical ~ Abdomen: non-tender, soft Bowel: present Musculoskeletal: normal, strength/ROM intact Neuro: normal, sensory motor intact, A&Ox3 Triage Information Reviewed: Yes Vital Signs On Initial Exam: Initial Vitals Temp Pulse Resp BP Pulse Ox 97.7 F 56 15 135/81 96 04/08/18 13:18 04/08/18 13:18 04/08/18 13:18 04/08/18 13:18 04/08/18 13:18 Vital Signs Reviewed: Yes Diagnostics - Vital Signs Vital Signs Temp Pulse Resp BP Pulse Ox 04/08/18 13:18 97.7 F 56 15 135/81 96 - Laboratory Lab Results: Lab Results 04/08/18 04/08/18 04/08/18 Range/Units 13:42 13:42 13:42 WBC 6.7 (3.5-10.8) 10^3/ul RBC 5.00 (4.0-5.4) 10^6/ul Hgb 15.2 (14.0-18.0) g/dl Hct 45 (42-52) % MCV 90 (80-94) fL MCH 30 (27-31) pg MCHC 34 (31-36) g/dl RDW 14 (10.5-15) % Plt Count 180 (150-450) 10^3/ul MPV 9.1 (7.4-10.4) um3 Neut % (Auto) 64.8 (38-83) % Lymph % (Auto) 20.5 L (25-47) % [place] % (Auto) 10.8 H (0-7) % Eos % (Auto) 3.4 (0-6) % Baso % (Auto) 0.5 (0-2) % Absolute Neuts (auto) 4.4 (1.5-7.7) 10^3/ul Absolute Lymphs (auto) 1.4 (1.0-4.8) 10^3/ul Absolute Monos (auto) 0.7 (0-0.8) 10^3/ul Absolute Eos (auto) 0.2 (0-0.6) 10^3/ul Absolute Basos (auto) 0 (0-0.2) 10^3/ul Absolute Nucleated RBC 0 10^3/ul Nucleated RBC % 0 Sodium 139 (139-145) mmol/L Potassium 4.3 (3.5-5.0) mmol/L Chloride 109 (101-111) mmol/L Carbon Dioxide 26 (22-32) mmol/L Anion Gap 4 (2-11) mmol/L BUN 12 (6-24) mg/dL Creatinine 0.82 (0.67-1.17) mg/dL Est GFR ( Amer) 118.8 (>60) Est GFR (Non-Af Amer) 92.4 (>60) BUN/Creatinine Ratio 14.6 (8-20) Glucose 97 (70-100) mg/dL Lactic Acid 0.9 (0.5-2.0) mmol/L Calcium 9.4 (8.6-10.3) mg/dL Magnesium 2.0 (1.9-2.7) mg/dL Total Bilirubin 0.60 (0.2-1.0) mg/dL AST 17 (13-39) U/L ALT 20 (7-52) U/L Alkaline Phosphatase 61 (34-104) U/L Troponin I 0.00 (<0.04) ng/mL Total Protein 7.0 (6.4-8.9) g/dL Albumin 4.1 (3.2-5.2) g/dL Globulin 2.9 (2-4) g/dL Albumin/Globulin Ratio 1.4 (1-3) TSH 3.26 (0.34-5.60) mcIU/mL Urine Color Urine Appearance Urine pH (5-9) Ur Specific [place] (1.010-1.030) Urine Protein (Negative) Urine Ketones (Negative) Urine Blood (Negative) Urine Nitrate (Negative) Urine Bilirubin (Negative) Urine Urobilinogen (Negative) Ur Leukocyte Esterase (Negative) Urine Glucose (Negative) 04/08/18 Range/Units 15:57 WBC (3.5-10.8) 10^3/ul RBC (4.0-5.4) 10^6/ul Hgb (14.0-18.0) g/dl Hct (42-52) % MCV (80-94) fL MCH (27-31) pg MCHC (31-36) g/dl RDW (10.5-15) % Plt Count (150-450) 10^3/ul MPV (7.4-10.4) um3 Neut % (Auto) (38-83) % Lymph % (Auto) (25-47) % [place] % (Auto) (0-7) % Eos % (Auto) (0-6) % Baso % (Auto) (0-2) % Absolute Neuts (auto) (1.5-7.7) 10^3/ul Absolute Lymphs (auto) (1.0-4.8) 10^3/ul Absolute Monos (auto) (0-0.8) 10^3/ul Absolute Eos (auto) (0-0.6) 10^3/ul Absolute Basos (auto) (0-0.2) 10^3/ul Absolute Nucleated RBC 10^3/ul Nucleated RBC % Sodium (139-145) mmol/L Potassium (3.5-5.0) mmol/L Chloride (101-111) mmol/L Carbon Dioxide (22-32) mmol/L Anion Gap (2-11) mmol/L BUN (6-24) mg/dL Creatinine (0.67-1.17) mg/dL Est GFR ( Amer) (>60) Est GFR (Non-Af Amer) (>60) BUN/Creatinine Ratio (8-20) Glucose (70-100) mg/dL Lactic Acid (0.5-2.0) mmol/L Calcium (8.6-10.3) mg/dL Magnesium (1.9-2.7) mg/dL Total Bilirubin (0.2-1.0) mg/dL AST (13-39) U/L ALT (7-52) U/L Alkaline Phosphatase (34-104) U/L Troponin I (<0.04) ng/mL Total Protein (6.4-8.9) g/dL Albumin (3.2-5.2) g/dL Globulin (2-4) g/dL Albumin/Globulin Ratio (1-3) TSH (0.34-5.60) mcIU/mL Urine Color Yellow Urine Appearance Clear Urine pH 7.0 (5-9) Ur Specific [place] 1.009 L (1.010-1.030) Urine Protein Negative (Negative) Urine Ketones Negative (Negative) Urine Blood Negative (Negative) Urine Nitrate Negative (Negative) Urine Bilirubin Negative (Negative) Urine Urobilinogen Negative (Negative) Ur Leukocyte Esterase Negative (Negative) Urine Glucose Negative (Negative) Result Diagrams: 04/08/18 13:42 04/08/18 13:42 Lab Statement: Any lab studies that have been ordered have been reviewed, and results considered in the medical decision making process. - EKG 13:20 Cardiac Rate: NL - 70 bpm EKG Interpretation: Paced rhythm Re-Evaluation - Re-Evaluation First Eval Re-Evaluation Time: 16:55 Comment: Pt is doing well. Discussed consult with Dr. Ventura, as well as results and D/C plan. Dizzy Course/Dx - Course Assessment/Plan: Pt is a 72 y/o male who presents to the ED s/p near syncopal episode today at noon during which he felt lighteaded without LOC that lasted for a few seconds. Pt states he feels fine now, and denies any weakness, numbness, CP, abdominal pain, or PERALTA. Had a similar episode about 3 months ago, which prompted a Medtronic pacemaker to be placed and he is supposed to see the pacemaker human service technician for adjustments in April. Pt had blood work and a UA done with blood work results including a troponin of 0.00. EKG was paced rhythm. Upon reevaluaiton, the pt feels improved. Discussed care with Dr. Ventura who recommended taking his Ten[place]in 12.5 every other day. Pt will be D/C to home with Dx of dizziness with a follow up with his PCP. - Diagnoses Differential Diagnosis/HQI/PQRI: Dysrhythmia, Other - dizziness Provider Diagnoses: Dizziness - Provider Notifications Discussed Care Of Patient With: Gael Ventura Time Discussed With Above Provider: 16:45 Instructed by Provider To: Other - Recommended that the pt start taking Ten[place]in 12.5 every other day. Discharge - Sign-Out/Discharge Documenting (check all that apply): Discharge/Admit/Transfer - Discharge - Discharge Plan Condition: Stable Disposition: HOME Patient Education Materials: Dizziness (ED) Referrals: Jaclyn Hartley MD [Primary Care Provider] - 3 Days Additional Instructions: Take your [place] 12.5 every other day. RETURN TO ED FOR ANY NEW OR WORSENING SYMPTOMS. - Billing Disposition and Condition Condition: STABLE Disposition: HOME The documentation as recorded by the Wei guzman Jade accurately reflects the service I personally performed and the decisions made by Evan craig Emmanuel.
[2018-04-08 18:06] VITALS: BP 117/87
== END 2018-04-08 18:00 | disposition home or self-care (01) ==
LOC: ED 13:10
DX: R55 Syncope and collapse (principal); Z87.891 Personal history of nicotine dependence; R42 Dizziness and giddiness
CPT/HCPCS: 36415; 80053; 81003; 83605; 83735; 84443; 84484; 85025; 93005; 99283

== ENCOUNTER 2018-06-02 09:47 | Emergency (ER) | payer MEDICARE, OTHER ==
--- OUTSIDE RECORDS SUMMARY | 2018-06-02 09:55 | XMS REPORT ---
:1945 External Reference #:[id number] Author Organization [facility] Address [address] [facility]/[address] [place] [address] Phone [phone] Care Team Providers Name Role Phone Jaclyn Hartley MD Care Team Information [employer] Tender Unavailable Payers Type Date Identification Numbers Payment Provider Subscriber Commercial Effective: Policy Number: /BS Medicare Steven Mars 2016 [id number] Ppo PayID: [id number] [address] [address] [place] [address] Medigap Part B Effective: Policy Number: For Lincoln Mars 2010 [id number] Life/Tdefic PayID: [id number] [address] [place] [address] Medigap Part B Effective: 2010 Policy Number: [id number] Medicare Lincoln Mars Expires: 2016 PayID: [id number] [address] [facility] [place] [place] [address] Problems Date Description Provider Status Onset: 01/23/2012 Benign essential hypertension Gurmeet Malik KETAN Active Onset: 01/23/2012 Coronary arteriosclerosis Gurmeet Malik KETAN Active Onset: 01/23/2012 Mixed hyperlipidemia Gurmeet Malik KETAN Active Onset: 01/23/2012 Anxiety state Gurmeet Malik KETAN Active Onset: 03/06/2014 Sleep apnea Jaclyn Hartley M.D. Active Onset: 09/03/2015 Essential hypertension Jaclyn Hartley M.D. Active Family History Date Family Member(s) Problem(s) Comments Father due to at age 49 () Father due to Stroke () Father due to heart issues () Mother Healthy Mother 94 Children 3 Siblings 1 at age 51 d/t colon cancer Social History Type Date Description Comments Marital Status Legal Status: ETOH Use Rarely consumes alcohol Smoking Patient is a former smoker Daily Caffeine Consumes on average 2 cups of regular coffee per day Daily Caffeine Consumes on average 1 soda per day Allergies, Adverse Reactions, Alerts Date Description Reaction Status Severity Comments 01/23/2012 Aspirin active Medications Medication Date Status Form Strength Qnty SIG Indications Ordering Provider Metoprolol Active Tablets ER 25mg 45tabs 1/2 tab I10 Naeem, Succinate ER 018 24HR by mouth manohar Chung M.D. day I25.10 Cpap Machine With 08/28/2016 Active dx : g47.30 G47.30 Naeem, Ahmad Tubing And Face Linda Main Mask Simvastatin Active Tablets 20mg 90tabs 1 by mouth I25.10 Naeem, Rasmad every Linda Main day-cardiolo gy E78.2 Plavix Active Tablets 75mg 90tabs 1 tab by mouth I25.10 Naeem, every Ahmad day-cardiology Linda Main Amoxicillin 08/11/2017 - Hx Tablets 500mg 40tabs 2 by mouth twice H66.92 Naeem, 08/21/2017 a day Jaclyn Main M.D. Amoxicillin 01/21/2017 - Hx Tablets 500mg 40tabs 2 by mouth twice J20.9 Naeem, 01/31/2017 a day Jaclyn Main M.D. Amoxicillin 07/11/2016 - Hx Tablets 500mg 40tabs 2 by mouth twice J20.9 Naeem, 07/21/2016 a day Jaclyn Main M.D. Prednisone 07/11/2016 - Hx Tablets 20mg 20tabs 2 tab by mouth J20.9 Naeem, 07/27/2016 daily 4 Ahmad days,30x3d,20x2d Linda Main ,10x7d Advair Diskus 07/11/2016 - Hx Aerosol 250-50 3Mdi 1 by mouth twice J44.9 Naeem, 12/10/2017 mcg/Do a day Ahmad se Etelvina M.D. Ventolin HFA 07/11/2016 - Hx Aerosol 108(90 18gm inhale two puffs J44.9 Naeem, 12/10/2017 Base) by mouth every 4 Ahmad mcg/Ac hours as needed Linda Main t J30.2 J45.909 Prednisone 07/03/2016 - Hx Tablets 20mg 8tabs 2 tab by mouth R06.02 Naeem, 07/06/2016 daily 4 days Ahmad Linda Main Cephalexin 07/03/2016 - Hx Tablets 500mg 21tabs tab one by mouth Naeem , 07/09/2016 three times a Ahmad day Linda Main Cephalexin 06/23/2016 - Hx Tablets 500mg 30tabs tab one by mouth Naeem , 07/03/2016 three times a Ahmad day Linda Main Medrol 06/23/2016 - Hx TBPK 4mg 21units use as directed Naeem, 07/03/2016 on package Jaclyn Main M.D. Bacitracin 10/12/2015 - Hx Ointment 500Unit apply to L03.211 Naeem, 10/19/2015 /GM affected area Ahmad twice a day as Linda Main needed till healed Zostavax 10/12/2015 - Hx Solution [id number] 1units inject sc after Z23 Naeem, 06/09/2016 Rec t/0.65M reconstitution Ahmadiana Main M.D. Proair HFA 09/03/2015 - Hx Aerosol 108(90B 2Mdi inhale 2 puffs J44.9 Naeem, 07/11/2016 ase) by mouth every 4 Ahmad mcg/Act hours if needed Linda Main J30.2 J45.909 Azithromycin 08/30/2015 - Hx Tablets 250mg 6tabs take two tablets J06.9 Naeem, 09/04/2015 by mouth as one Ahmadiana Main, dose on the M.DLuann first day then take one daily thereafter x 4 days J18.8 Voltaren 11/10/2014 - Hx Gel 1% 400units apply One 715.00 Naeem, 08/30/2015 Inch four Rasmadiana Main, times a day M.D. as directed Gentamicin 10/25/2013 - Hx Ointment 0.3% 3.500gm apply 11/10 372.00 Naeem , Sulfate 11/01/2013 inch tid to Jaclyn Main, r eye x7 M.D. days Zostavax 08/17/2013 - Hx Solution Rec [id number] 1units give as Naeem, 02/07/2014 nt/0.6 directed Jaclyn Main, 5ML M.D. Atenolol - Hx Tablets 25mg 30tabs 1 tab by I25.10 [facility], 12/10/2017 mouth every Jaclyn Main, day-Cardiol M.D. ogy I10 Immunizations CPT Code Status Date Vaccine Lot # [id number] Given 08/25/2017 Flu Vaccine 3+Yrs Old(Fluzone) [id number] Given 09/23/2016 Pneumococcal Conjugate Vaccine 13 Valent For [id number] Intramuscular Use Q2038 Given 07/25/2016 Flu Vaccine 3+Yrs Old(Fluzone) [id number] Given 10/21/2015 Zoster Shingles Vaccine For Injection 27231 Given 10/12/2015 TDaP [id number] Q2038 Given 09/03/2015 Flu Vaccine 3+Yrs Old(Fluzone) [id number] Q2038 Given 08/11/2014 Flu Vaccine 3+Yrs Old(Fluzone) [id number] Vital Signs Date Vital Result Comment 05/24/2018 BP Systolic 118 mmHg BP Diastolic 82 mmHg Height 71 inches 5'11" Weight 199.00 lb BMI (Body Mass Index) 27.8 kg/m2 Heart Rate 68 /min Respiratory Rate 16 /min 03/29/2018 BP Systolic 132 mmHg BP Diastolic 80 mmHg Height 71 inches 5'11" Weight 200.00 lb BMI (Body Mass Index) 27.9 kg/m2 Heart Rate 79 /min Respiratory Rate 18 /min 01/05/2018 BP Systolic 124 mmHg BP Diastolic 82 mmHg BP Systolic Recheck 150 mmHg Own Machine BP Diastolic Recheck 90 mmHg Own Machine Height 71 inches 5'11" Weight 196.00 lb BMI (Body Mass Index) 27.3 kg/m2 Heart Rate 75 /min Respiratory Rate 18 /min 12/28/2017 BP Systolic 110 mmHg BP Diastolic 70 mmHg Height 71 inches 5'11" Weight 195.00 lb BMI (Body Mass Index) 27.2 kg/m2 Heart Rate 78 /min Respiratory Rate 18 /min 12/16/2017 BP Systolic 118 mmHg BP Diastolic 63 mmHg Height 71 inches 5'11" Weight 200.00 lb BMI (Body Mass Index) 27.9 kg/m2 Heart Rate 68 /min Respiratory Rate 18 /min 08/25/2017 BP Systolic 118 mmHg BP Diastolic 62 mmHg Height 71 inches 5'11" Weight 199.00 lb BMI (Body Mass Index) 27.8 kg/m2 Heart Rate 61 /min Respiratory Rate 18 /min 08/11/2017 BP Systolic 110 mmHg BP Diastolic 70 mmHg Height 71 inches 5'11" Weight 197.00 lb BMI (Body Mass Index) 27.5 kg/m2 01/21/2017 Height 71 inches 5'11" Weight 197.00 lb BMI (Body Mass Index) 27.5 kg/m2 Heart Rate 78 /min Body Temperature 97.8 F Respiratory Rate 18 /min 09/23/2016 BP Systolic 108 mmHg BP Diastolic 62 mmHg Height 71 inches 5'11" Weight 197.00 lb BMI (Body Mass Index) 27.5 kg/m2 Heart Rate 61 /min Respiratory Rate 16 /min 09/09/2016 BP Systolic 128 mmHg BP Diastolic 66 mmHg Height 71 inches 5'11" Weight 196.00 lb BMI (Body Mass Index) 27.3 kg/m2 Heart Rate 72 /min Respiratory Rate 20 /min 08/28/2016 BP Systolic 132 mmHg BP Diastolic 66 mmHg Height 71 inches 5'11" Weight 197.00 lb BMI (Body Mass Index) 27.5 kg/m2 Heart Rate 74 /min Respiratory Rate 18 /min 07/25/2016 BP Systolic 132 mmHg BP Diastolic 74 mmHg Height 71 inches 5'11" Weight 195.00 lb BMI (Body Mass Index) 27.2 kg/m2 Heart Rate 86 /min Respiratory Rate 20 /min 07/11/2016 BP Systolic 132 mmHg BP Diastolic 74 mmHg Height 71 inches 5'11" Weight 197.00 lb BMI (Body Mass Index) 27.5 kg/m2 Heart Rate 82 /min Respiratory Rate 22 /min 07/03/2016 BP Systolic 136 mmHg BP Diastolic 74 mmHg Height 71 inches 5'11" Weight 195.00 lb BMI (Body Mass Index) 27.2 kg/m2 Heart Rate 66 /min Respiratory Rate 18 /min 06/23/2016 BP Systolic 132 mmHg BP Diastolic 76 mmHg Height 71 inches 5'11" Weight 196.00 lb BMI (Body Mass Index) 27.3 kg/m2 Heart Rate 84 /min Respiratory Rate 20 /min 10/12/2015 BP Systolic 120 mmHg BP Diastolic 78 mmHg Height 71 inches 5'11" Weight 193.00 lb BMI (Body Mass Index) 26.9 kg/m2 Heart Rate 65 /min Respiratory Rate 18 /min 09/03/2015 BP Systolic 119 mmHg BP Diastolic 81 mmHg Height 71 inches 5'11" Weight 194.00 lb BMI (Body Mass Index) 27.1 kg/m2 Heart Rate 70 /min Respiratory Rate 18 /min 08/30/2015 BP Systolic 128 mmHg BP Diastolic 86 mmHg Height 71 inches 5'11" Weight 193.00 lb BMI (Body Mass Index) 26.9 kg/m2 Heart Rate 76 /min Body Temperature 97.0 F Respiratory Rate 16 /min 11/10/2014 BP Systolic 127 mmHg BP Diastolic 79 mmHg Height 71 inches 5'11" Weight 194.00 lb BMI (Body Mass Index) 27.1 kg/m2 Heart Rate 62 /min Respiratory Rate 14 /min 08/11/2014 BP Systolic 127 mmHg BP Diastolic 79 mmHg Height 71 inches 5'11" Weight 193.00 lb BMI (Body Mass Index) 26.9 kg/m2 Heart Rate 69 /min Body Temperature 97.1 F Respiratory Rate 18 /min 03/06/2014 BP Systolic 115 mmHg BP Diastolic 74 mmHg Height 71 inches 5'11" Weight 195.00 lb BMI (Body Mass Index) 27.2 kg/m2 Heart Rate 60 /min Respiratory Rate 18 /min 02/28/2014 BP Systolic 129 mmHg BP Diastolic 80 mmHg Height 71 inches 5'11" Weight 198.00 lb BMI (Body Mass Index) 27.6 kg/m2 Heart Rate 59 /min Respiratory Rate 18 /min 10/25/2013 BP Systolic 108 mmHg BP Diastolic 68 mmHg Height 71 inches 5'11" Weight 197.00 lb BMI (Body Mass Index) 27.5 kg/m2 Heart Rate 62 /min Respiratory Rate 18 /min 08/17/2013 BP Systolic 126 mmHg BP Diastolic 78 mmHg Height 71 inches 5'11" Weight 195.00 lb BMI (Body Mass Index) 27.2 kg/m2 Heart Rate 58 /min Respiratory Rate 20 /min 08/10/2013 BP Systolic 115 mmHg BP Diastolic 72 mmHg Height 71 inches 5'11" Weight 190.00 lb BMI (Body Mass Index) 26.5 kg/m2 Heart Rate 60 /min Respiratory Rate 18 /min 08/03/2013 BP Systolic 118 mmHg BP Diastolic 68 mmHg Height 71 inches 5'11" Weight 192.00 lb BMI (Body Mass Index) 26.8 kg/m2 Heart Rate 72 /min Body Temperature 97.4 F Respiratory Rate 18 /min Results Test Date Test Result H/L Range Note Laboratory test finding 05/24/2018 TSH (Thyroid Stim Horm) <pending> Laboratory test finding 05/24/2018 Vitamin D Total 25(Oh) <pending> CRP High Sensitivity <pending> Hemoglobin A1c (Glyco HGB) <pending> CBC Auto Diff 12/17/2017 White Blood Count 7.6 10^3/uL 3.5-10.8 Red Blood Count 4.83 10^6/uL 4.0-5.4 Hemoglobin 14.7 g/dL 14.0-18.0 Hematocrit 44 % 42-52 Mean Corpuscular Volume 90 fL 80-94 Mean Corpuscular Hemoglobin 30 pg 27-31 Mean Corpuscular HGB Conc 34 g/dL 31-36 Red Cell Distribution Width 14 % 10.5-15 Platelet Count 183 10^3/uL 150-450 Mean Platelet Volume 9 um3 7.4-10.4 Abs Neutrophils 5.6 10^3/uL 1.5-7.7 Abs Lymphocytes 1.3 10^3/uL 1.0-4.8 Abs Monocytes 0.6 10^3/uL 0-0.8 Abs Eosinophils 0.2 10^3/uL 0-0.6 Abs Basophils 0 10^3/uL 0-0.2 Abs Nucleated RBC 0 10^3/uL Granulocyte % 73.1 % 38-83 Lymphocyte % 16.9 % Low 25-47 Monocyte % 7.3 % 1-9 Eosinophil % 2.2 % 0-6 Basophil % 0.5 % 0-2 Nucleated Red Blood Cells % 0 Comp Metabolic Panel 12/17/2017 Sodium 136 mmol/L 133-145 Potassium 4.4 mmol/L 3.5-5.0 Chloride 104 mmol/L 101-111 Co2 Carbon Dioxide 26 mmol/L 22-32 Anion Gap 6 mmol/L 2-11 Blood Urea Nitrogen 15 mg/dL 6-24 Creatinine 0.97 mg/dL 0.67-1.17 BUN/Creatinine Ratio 15.5 8-20 Calcium 9.2 mg/dL 8.6-10.3 Total Protein 6.7 g/dL 6.4-8.9 Albumin 4.0 g/dL 3.2-5.2 Globulin 2.7 g/dL 2-4 Albumin/Globulin Ratio 1.5 1-3 Total Bilirubin 0.50 mg/dL 0.2-1.0 Alkaline Phosphatase 49 U/L 34-104 Alt 21 U/L 7-52 Ast 18 U/L 13-39 Egfr Non- 76.1 >60 Egfr 97.8 >60 1 Glucose 103 mg/dL High 70-100 Laboratory test finding 12/17/2017 Troponin-I (TnI) 0.00 ng/mL <0.04 TSH (Thyroid Stim Horm) 3.29 mcIU/mL 0.34-5.60 CBC Auto Diff 12/16/2017 White Blood Count 6.4 10^3/uL 3.5-10.8 Red Blood Count 5.13 10^6/uL 4.0-5.4 Hemoglobin 15.8 g/dL 14.0-18.0 Hematocrit 47 % 42-52 Mean Corpuscular Volume 91 fL 80-94 Mean Corpuscular Hemoglobin 31 pg 27-31 Mean Corpuscular HGB Conc 34 g/dL 31-36 Red Cell Distribution Width 14 % 10.5-15 Platelet Count 195 10^3/uL 150-450 Mean Platelet Volume 10 um3 7.4-10.4 Abs Neutrophils 4.4 10^3/uL 1.5-7.7 Abs Lymphocytes 1.2 10^3/uL 1.0-4.8 Abs Monocytes 0.6 10^3/uL 0-0.8 Abs Eosinophils 0.2 10^3/uL 0-0.6 Abs Basophils 0 10^3/uL 0-0.2 Abs Nucleated RBC 0 10^3/uL Granulocyte % 69.2 % 38-83 Lymphocyte % 18.8 % Low 25-47 Monocyte % 8.7 % 1-9 Eosinophil % 2.8 % 0-6 Basophil % 0.5 % 0-2 Nucleated Red Blood Cells % 0.1 Comp Metabolic Panel 12/16/2017 Sodium 138 mmol/L 133-145 Potassium 4.7 mmol/L 3.5-5.0 Chloride 104 mmol/L 101-111 Co2 Carbon Dioxide 26 mmol/L 22-32 Anion Gap 8 mmol/L 2-11 Glucose 154 mg/dL High 70-100 Blood Urea Nitrogen 18 mg/dL 6-24 Creatinine 0.96 mg/dL 0.67-1.17 BUN/Creatinine Ratio 18.8 8-20 Calcium 9.5 mg/dL 8.6-10.3 Total Protein 6.8 g/dL 6.4-8.9 Albumin 4.2 g/dL 3.2-5.2 Globulin 2.6 g/dL 2-4 Albumin/Globulin Ratio 1.6 1-3 Total Bilirubin 0.60 mg/dL 0.2-1.0 Alkaline Phosphatase 49 U/L 34-104 Alt 21 U/L 7-52 Ast 15 U/L 13-39 Egfr Non- 77.0 >60 Egfr 99.0 >60 2 Laboratory test finding 12/16/2017 Erythrocyte Sed Rate 9 mm/Hr 0-40 3 CRP High Sensitivity 1.78 mg/L 4 Lipid Profile (Trig/Chol/HDL) 12/16/2017 Triglycerides 74 mg/dL 5 Cholesterol 113 mg/dL 6 HDL Cholesterol 41.7 mg/dL 7 LDL Cholesterol 57 mg/dL 8 Laboratory test finding 12/16/2017 TSH (Thyroid Stim Horm) 3.79 mcIU/mL 0.34-5.60 9 Vitamin B12 225 pg/mL 180-914 10 Basic Metabolic Panel 01/21/2016 Sodium 137 mmol/L 133-145 11 Potassium 4.2 mmol/L 3.5-5.0 11 Chloride 106 mmol/L 101-111 11 Co2 Carbon Dioxide 25 mmol/L 22-32 11 Anion Gap 6 mmol/L 2-11 11 Glucose 98 mg/dL 70-100 11 Blood Urea Nitrogen 15 mg/dL 6-24 11 Creatinine 1.02 mg/dL 0.67-1.17 11 BUN/Creatinine Ratio 14.7 8-20 11 Calcium 9.5 mg/dL 8.6-10.3 11 Egfr Non- 72.2 >60 11 Egfr 92.9 >60 11, 12 Lipid Profile (Trig/Chol/HDL) 01/21/2016 Triglycerides 68 mg/dL 11, 13 Cholesterol 117 mg/dL 11, 14 HDL Cholesterol 44.1 mg/dL 11, 15 LDL Cholesterol 59 mg/dL 11, 16 Liver Function Panel 01/21/2016 Total Protein 7.0 g/dL 6.4-8.9 11 Albumin 4.5 g/dL 3.2-5.2 11 Globulin 2.5 g/dL 2-4 11 Albumin/Globulin Ratio 1.8 1-3 11 Total Bilirubin 0.80 mg/dL 0.2-1.0 11 Direct Bilirubin 0.20 mg/dL High 0.03-0.18 11 Indirect Bilirubin 0.6 mg/dL 0.3-1.0 11 Alkaline Phosphatase 42 U/L 34-104 11 Alt 19 U/L 7-52 11 Ast 16 U/L 13-39 11 Laboratory test finding 01/21/2016 Magnesium 2.0 mg/dL 1.9-2.7 11, 17 TSH (Thyroid Stim Horm) 2.44 ?IU/mL 0.34-5.60 11, 18 Free T4 (Free Thyroxine) 0.95 ng/dL 0.61-1.12 11, 19 T3 Total 1.09 ng/mL 0.87-1.78 11, 20 Vitamin D Total 25(Oh) 24.0 ng/mL Low 30-50 11, 21 Allergen Profile,Basic Food 08/30/2015 mRast Class (Text Only) See Note 22 Beef <0.10 Regxj4kL/L Chocolate/[place] F052 <0.10 Plxyi7vR/L 23 [place] <0.10 Dlaud7sD/L Egg (Whole) <0.10 Ibchc8kB/L Fish/Shell Mix Negative k/UL . 24 Milk (Cow) <0.10 Odvao8wQ/L Peanut <0.10 Bhcde1hF/L Soybean <0.10 Kzqrv5sW/L Wheat <0.10 Wybom4bS/L Pork <0.10 Mnqps9xU/L Allergens,Zone 1 08/30/2015 mRast Class (Text Only) See Note 25 D Pteronyssinus <0.10 Jjmha8iD/L D Farinae Mite <0.10 Lfyjz4xY/L Cat Hair/Dander <0.10 Khwnz5eB/L Dog Hair/Dander <0.10 Xqezy1tI/L [place] <0.10 Xgtlh5nA/L [place] Grass <0.10 Fsyhu0rG/L [place] Grass <0.10 Mvwxc2rM/L Cockroach,French <0.10 Ydojf6zP/L Penicillium Not <0.10 Ranko3kB/L Cladosporium Herbarum <0.10 Gqsox2mF/L Apergillis Fumigatus Ige <0.10 Wyxcx0lK/L Mucor Racemosus <0.10 Nthvq9bF/L Alternaria Tenuis <0.10 Oftca3oH/L Stemphylium Bot <0.10 Fenxf8zP/L Birch,White <0.10 Jagog4pN/L [place],White <0.10 Hxdlu7gW/L Elm,French (White) <0.10 Bhgrp7iP/L Fernando,White <0.10 Thaxx2gO/L Hazelnut Tree <0.10 Rfafs0oU/L [place],White <0.10 Zoawj1kM/L [place],White <0.10 Zfldh4fM/L [place] <0.10 Udwko5uV/L Ragweed,Short/ <0.10 Mheyr6xO/L Mugwort <0.10 Nfqrj8kX/L Plantain,Cymro <0.10 Erzyt6zT/L Pigweed,Rough <0.10 Birnk4yF/L Sheep [place] (DO <0.10 Ltaeo0xT/L Nettle <0.10 Fjgqm4cU/L Maple/[place] Ige T001 <0.10 Kludt6oZ/L 26 CBC W/Automated Diff 08/30/2015 White Blood Count 8.0 K/uL 3.4-10.5 Red Blood Count 4.81 M/uL 4.20-5.80 Hemoglobin 15.3 gm/dL 12.8-17.0 Hematocrit 45.8 % 38.0-48.0 Mean Cell Volume 95.2 fl 80.0-96.0 Mean Corpuscular HGB 31.8 pg 27.0-33.0 Mean Corpuscular HGB Conc 33.4 g/dL 31.7-36.0 Platelet Count 234 K/uL 150-400 Red Cell Distri Width SD 48.1 fl 36-51 Red Cell Distri Width %CV 14.1 % 11.6-15.8 Mean Platelet Volume 11.6 fL High 6.6-10.6 Neut% 70.3 % 33.0-73.0 Lymph % 15.9 % Low 17.0-56.0 Tensas % 8.7 % 0.0-10.0 Eo% 4.8 % 0.0-5.0 Bas% 0.3 % 0.1-1.0 Neut# 5.61 K/uL 1.8-7.0 Lymph # 1.27 K/uL Low 1.8-7.0 Tensas # 0.69 K/uL 0.0-0.8 Eos # 0.38 K/uL 0.0-0.5 Baso # 0.02 K/uL Low 0.1-0.2 Laboratory test finding 08/30/2015 Sedimentation Rate 6 mm/hr 0-20 Basic Metabolic Panel 01/25/2014 Sodium 140 mmol/L 133-145 Potassium 4.3 mmol/L 3.7-5.6 Chloride 106 mmol/L 101-111 Co2 Carbon Dioxide 29 mmol/L 22-32 Anion Gap 5 mmol/L 2-11 Glucose 92 mg/dL 70-100 Blood Urea Nitrogen 12 mg/dL 6-24 Creatinine 0.96 mg/dL 0.67-1.17 BUN/Creatinine Ratio 12.5 8-20 Calcium 9.3 mg/dL 8.6-10.3 Egfr Non- 77.9 >60 Egfr 100.2 >60 27 Vitamin D, 25 Hydroxy 01/25/2014 25-Hydroxy Vitamin D2 <4.0 ng/mL 25-Hydroxy Vitamin D3 26 ng/mL 25-Hydroxy Vitamin D Total 26 ng/mL 28 Laboratory test finding 01/25/2014 Alt 23 U/L 7-52 Ast 16 U/L 13-39 Free T4 1.02 ng/mL 0.61-1.12 TSH (Thyroid Stimulating Horm) 2.84 IU/mL 0.34-5.60 Hemoglobin A1c 5.4 % Less than 6.0 29 Lipid Profile (Trig/Chol/HDL) 01/25/2014 Triglycerides 94 mg/dL 30 Cholesterol 121 mg/dL 31 HDL Cholesterol 42.6 mg/dL 32 LDL Cholesterol 60 mg/dL 33 PSA (Free And Total) 08/10/2013 Prostate-specific antigen,Seru 1.0 ng/mL 0.0-4.0 34 PSA,Free 0.23 N/Ang/mL 35 %Free PSA 23.0 % . 36 Laboratory test finding 08/10/2013 Thyroid Stim Hormone 2.30 uIU/mL 0.49- 4.67 Liver Function Tests 08/10/2013 Total Protein 7.2 g/dL 6.3-8.0 Albumin 4.1 g/dL 3.5-5.0 Globulin 3.1 g/dL 1.9-4.3 Alb/Glob 1.3 ratio Bilirubin,Total 0.5 mg/dL 0.2-1.2 Bilirubin,Direct 0.1 mg/dL 0.1-0.4 Bilirubin,Indirect 0.4 mg/dL 0.0-0.9 Sgot/Ast 25 U/L 16-40 SGPT/Alt 43 U/L 30-65 Alkaline Phosphatase 74 U/L 50-136 LDL Cholesterol Profile 08/10/2013 Cholesterol 118 mg/dL Low 120-200 Triglycerides 54 mg/dL 16-231 HDL Cholesterol 46 mg/dL 29-83 LDL-Cholesterol 61 mg/dL Low 62-185 Laboratory test 08/10/2013 C-Reactive 5.28 mg/L High 0.00-3.00 37 finding Protein,Cardiac Sedimentation Rate 4 mm/hr 0-20 CBC W/Automated Diff 08/10/2013 White Blood Count 5.8 K/uL 3.4-10.5 Red Blood Count 4.82 M/uL 4.20-5.80 Hemoglobin 14.5 gm/dL 12.8-17.0 Hematocrit 45.0 % 38.0-48.0 Mean Cell Volume 93.4 fl 80.0-96.0 Mean Corpuscular HGB 30.1 pg 27.0-33.0 Mean Corpuscular HGB Conc 32.2 g/dL 31.7-36.0 Platelet Count 233 K/uL 150-400 Red Cell Distri Width SD 48.7 fl 36-51 Red Cell Distri Width %CV 14.7 % 11.6-15.8 Mean Platelet Volume 11.2 fL High 6.6-10.6 Neut% 58.5 % 33.0-73.0 Lymph % 25.6 % 17.0-56.0 Tensas % 10.4 % High 0.0-10.0 Eo% 5.2 % High 0.0-5.0 Bas% 0.3 % 0.1-1.0 Neut# 3.37 K/uL 1.8-7.0 Lymph # 1.48 K/uL 1.2-4.0 Tensas # 0.60 K/uL 0.0-0.6 Eos # 0.30 K/uL 0.0-0.5 Baso # 0.02 K/uL Low 0.1-0.2 Basic Metabolic Panel 08/10/2013 Glucose 96 mg/dL 76-115 BUN 11 mg/dL 5-23 Creatinine 0.9 mg/dL 0.5-1.4 Glom Filtration Rate, Estimate >60 mL/min >60 If >60 mL/min >60 38 BUN/Creat 12.2 ratio Sodium 142 mmol/L 136-145 Potassium 4.1 mmol/L 3.5-5.1 Chloride 107 mmol/L 98-107 Carbon Dioxide 23 mEq/L 18-29 Anion Gap 16 mEq/L 8-16 Calcium 9.0 mg/dL 8.5-10.1 Vitamin D, 25 Hydroxy 12/16/2012 25-Hydroxy Vitamin D2 <4.0 ng/mL 25-Hydroxy Vitamin D3 27 ng/mL 25-Hydroxy Vitamin D Total 27 ng/mL 39 Laboratory test finding 12/16/2012 Alt 25 U/L 14-54 Ast 21 U/L 12-42 Hemoglobin A1c 5.7 % Less than 6.0 40 Free T4 0.83 ng/mL 0.61-1.24 TSH (Thyroid Stimulating Horm) 3.41 miu/mL 0.34-5.60 Lipid Profile (Trig/Chol/HDL) 12/16/2012 Triglycerides 78 mg/dL 40-200 Cholesterol 137 mg/dL Less than 200 HDL Cholesterol 45 mg/dL 40-60 41 Cholesterol/HDL Ratio 3.0 Average 1-4.44 LDL Cholesterol 76.4 mg/dL Less Than 100 42 Basic Metabolic Panel 12/16/2012 Sodium 135 mmol/L 133-145 Potassium 4.4 mmol/L 3.5-5.0 Chloride 105 mmol/L 101-111 Co2 Carbon Dioxide 26.0 mmol/L 22-32 Anion Gap 4.0 mmol/L 2-11 Glucose 88 mg/dL 70-100 Blood Urea Nitrogen 15 mg/dL 6-24 Creatinine 0.80 mg/dL 0.50-1.40 BUN/Creatinine Ratio 18.8 8-20 Calcium 9.6 mg/dL 8.1-9.9 Egfr Non- 96.4 >60 Egfr 124.0 >60 43 1 Because ethnic data is not always readily available, this report includes an eGFR for both -Americans and non- Americans. The National Kidney Disease Education Program (NKDEP) does not endorse the use of the MDRD equation for patients that are not between the ages of 18 and 70, are , have extremes of body size, muscle mass, or nutritional status, or are non- or non-. According to the National Kidney Foundation, irrespective of diagnosis, the stage of the disease is based on the level of kidney function: Stage Description GFR(mL/min/1.73 m(2)) 1 Kidney damage with normal or decreased GFR 90 2 Kidney damage with mild decrease in GFR 60-89 3 Moderate decrease in GFR 30-59 4 Severe decrease in GFR 15-29 5 Kidney failure <15 (or dialysis) 2 Because ethnic data is not always readily available, this report includes an eGFR for both -Americans and non- Americans. The National Kidney Disease Education Program (NKDEP) does not endorse the use of the MDRD equation for patients that are not between the ages of 18 and 70, are , have extremes of body size, muscle mass, or nutritional status, or are non- or non-. According to the National Kidney Foundation, irrespective of diagnosis, the stage of the disease is based on the level of kidney function: Stage Description GFR(mL/min/1.73 m(2)) 1 Kidney damage with normal or decreased GFR 90 2 Kidney damage with mild decrease in GFR 60-89 3 Moderate decrease in GFR 30-59 4 Severe decrease in GFR 15-29 5 Kidney failure <15 (or dialysis) 3 [id number] 4 Low risk: <1.00 Average risk: 1.00-3.00 High risk: >3.00 5 Desirable: <150 Borderline High: 150-199 High: 200-499 Very High: >500 6 Desirable: <200 Borderline High: 200-239 High: >239 7 Low: <40 Desirable: 40-60 High: >60 8 Desirable: <100 Near Optimal: 100-129 Borderline High: 130-159 High: 160-189 Very High: >189 9 [id number] 10 Normal Range 180 to 914 Indeterminate Range 145 to 180 Deficient Range <145 11 FASTING 12 Because ethnic data is not always readily available, this report includes an eGFR for both -Americans and non- Americans. The National Kidney Disease Education Program (NKDEP) does not endorse the use of the MDRD equation for patients that are not between the ages of 18 and 70, are , have extremes of body size, muscle mass, or nutritional status, or are non- or non-. According to the [employer] Kid[employer], irrespective of diagnosis, the stage of the disease is based on the level of kidney function: Stage Description GFR(mL/min/1.73 m(2)) 1 Kidney damage with normal or decreased GFR 90 2 Kidney damage with mild decrease in GFR 60-89 3 Moderate decrease in GFR 30-59 4 Severe decrease in GFR 15-29 5 Kidney failure <15 (or dialysis) 13 Desirable <150 Borderline high 150-199 High 200-499 Very High >500 14 Desirable <200 Borderline high 200-239 High >239 15 Low <40 Desirable: 40-60 High: >60 16 Desirable: <100 mg/dL Near Optimal: 100-129 mg/dL Borderline High: 130-159 mg/dL High: 160-189 mg/dL Very High: >189 mg/dL 17 FASTING 18 FASTING 19 FASTING 20 FASTING 21 FASTING 22 Levels of Specific IgE Class Description of Class ----- < 0.10 0 Negative 0.10 - 0.31 0/I Equivocal/Low 0.32 - 0.55 I Low 0.56 - 1.40 II Moderate 1.41 - 3.90 III High 3.91 - 19.00 IV Very High 19.01 - 100.00 V Very High >100.00 Very High 23 Test(s) [id number] [place], French; [id number] [place], [place] were developed and had performance characteristics determined by [employer]. These tests have not been cleared or approved by the [place]. Food and Drug Administration. The FDA has determined that such clearance or approval is not necessary. These tests are used for clinical purposes. These should not be regarded as investigational or for research. 24 Allergens in this mix are: Blue mussel Fish [place] Shrimp Tuna 25 Levels of Specific IgE Class Description of Class ----- < 0.10 0 Negative 0.10 - 0.31 0/I Equivocal/Low 0.32 - 0.55 I Low 0.56 - 1.40 II Moderate 1.41 - 3.90 III High 3.91 - 19.00 IV Very High 19.01 - 100.00 V Very High >100.00 Very High 26 Performed at: [address] [id number] Infrastructure Architect: Francisco Novak MD, Phone: [phone] 27 Because ethnic data is not always readily available, this report includes an eGFR for both -Americans and non- Americans. The National Kidney Disease Education Program (NKDEP) does not endorse the use of the MDRD equation for patients that are not between the ages of 18 and 70, are , have extremes of body size, muscle mass, or nutritional status, or are non- or non-. According to the National Kidney Foundation, irrespective of diagnosis, the stage of the disease is based on the level of kidney function: Stage Description GFR(mL/min/1.73 m(2)) 1 Kidney damage with normal or decreased GFR 90 2 Kidney damage with mild decrease in GFR 60-89 3 Moderate decrease in GFR 30-59 4 Severe decrease in GFR 15-29 5 Kidney failure <15 (or dialysis) 28 -- REFERENCE VALUE -- 25-HYDROXY D TOTAL (D2+D3) Optimum levels in the healthy population are 20-50, patients with bone disease may benefit from higher levels within this range. Test Performed by: [address] [address] Gear Coding Machine Operator: Jose Dangelo III, M.D. 29 Therapeutic target for the treatment of diabetes Mellitus patients is <7% HBA1C, and in selective patients <6.0%.Please refer to [employer] Diabetes Association Diabetic care guidelines for further information. 30 Desirable <150 Borderline high 150-199 High 200-499 Very High >500 31 Desirable <200 Borderline high 200-239 High >239 32 Low <40 Desirable: 40-60 High: >60 33 Desirable <100 Near Optimal 100-129 Borderline high 130-159 High 160-189 Very High >189 34 Stacey ECLIA methodology. According to the [employer] U[employer], Serum PSA should decrease and remain at undetectable levels after radical prostatectomy. The AUA defines biochemical recurrence as an initial PSA value 0.2 ng/mL or greater followed by a subsequent confirmatory PSA value 0.2 ng/mL or greater. Values obtained with different assay methods or kits cannot be used interchangeably. Results cannot be interpreted as absolute evidence of the presence or absence of malignant disease. 35 Stacey ECLIA methodology. 36 The table below lists the probability of prostate cancer for men with non-suspicious ODESSA results and total PSA between 4 and 10 ng/mL, by patient age (Jermaine et al, IGGY 1998, 279:1542). % Free PSA 50-64 yr 65-75 yr 0.00-10.00% 56% 55% 10.01-15.00% 24% 35% 15.01-20.00% 17% 23% 20.01-25.00% 10% 20% >25.00% 5% 9% Please note: Jermaine et al did not make specific recommendations regarding the use of percent free PSA for any other population of men. Performed at: RN - [facility] [address] [id number] Infrastructure Architect: Vani Swanson MD, Phone: [phone] 37 Relative Risk for Future Cardiovascular Event Low <1.00 Average 1.00 - 3.00 High >3.00 38 Note: Persistent reduction for 3 months or more in an eGFR <60 mL/min/1.73 m2 defines CKD. Patients with eGFR values >/=60 mL/min/1.73 m2 may also have CKD if evidence of persistent proteinuria is present. The original MDRD equation for estimated GFR is not valid for patients less than 18 years of age. Additional information may be found at www.kdoqi.org. 39 -- REFERENCE VALUE -- 25-HYDROXY D TOTAL (D2+D3) Optimum levels in the normal population are 25-80 Test Performed by: [address] [address] Gear Coding Machine Operator: Jose Dangelo III, M.D. 40 Therapeutic target for the treatment of diabetes Mellitus patients is <7% HBA1C, and in selective patients <6.0%.Please refer to [employer] Diabetes Association Diabetic care guidelines for further information. 41 HDL Interpretation: Undesirable: High Risk: Less than 40 MG/DL Desirable: Low Risk: Greater than 60 MG/DL 42 LDL Interpretation: Low Risk Optimal Level: LDL Less than 100 MG/DL Near or Above Optimal: LDL 100-129 MG/DL Borderline High Risk: LDL 130-159 MG/DL High Risk: LDL 160-189 MG/DL Very High Risk: LDL Greater than 189 MG/DL 43 Because ethnic data is not always readily available, this report includes an eGFR for both -Americans and non- Americans. The National Kidney Disease Education Program (NKDEP) does not endorse the use of the MDRD equation for patients that are not between the ages of 18 and 70, are , have extremes of body size, muscle mass, or nutritional status, or are non- or non-. According to the National Kidney Foundation, irrespective of diagnosis, the stage of the disease is based on the level of kidney function: Stage Description GFR(mL/min/1.73 m(2)) 1 Kidney damage with normal or decreased GFR 90 2 Kidney damage with mild decrease in GFR 60-89 3 Moderate decrease in GFR 30-59 4 Severe decrease in GFR 15-29 5 Kidney failure <15 (or dialysis) Procedures Date CPT Code Description Status 03/29/2018 23359 EKG Completed 12/16/2017 06398 Tympanometry Completed 08/11/2017 60137 Tympanometry Completed 08/28/2016 96795 Oximetry Pulse Or Ear Completed 07/25/2016 10235 Spirometry Completed 07/25/2016 94015 Tympanometry Completed 07/11/2016 66656 Spirometry Completed 07/11/2016 34345 Tympanometry Completed 07/03/2016 32298 Spirometry Completed 07/03/2016 78185 Tympanometry Completed 08/30/2015 98868 Tympanometry Completed 08/30/2015 33404 Spirometry Completed 02/28/2014 07403 Spirometry Completed 08/03/2013 11731 Visual Screening Test Completed 08/03/2013 01740 EKG Completed 08/03/2013 43699 Diagnostic Bekesy Audiometry Completed 09/19/2010 12748 EKG Completed 08/29/2010 76019 Visual Screening Test Completed 08/29/2010 78843 EKG Completed 08/29/2010 38909 Diagnostic Bekesy Audiometry Completed Encounters Type Date Location Provider CPT E/M Dx Office Visit 05/24/2018 9:00a [facility] Jaclyn Hartley M.D. 52126 I10 E78.2 F41.9 G47.30 J45.909 L20.9 J30.9 I25.10 J44.9 M15.9 N40.1 C44.629 H81.13 R55 I49.5 I44.7 I44.1 Z95.0 E55.9 R73.01 Office Visit 03/29/2018 9:00a [facility] Jaclyn Hartley M.D. 02909 I10 E78.2 F41.9 G47.30 J45.909 L20.9 J30.9 I25.10 J44.9 M15.9 N40.1 Z68.27 C44.629 H81.13 R55 I49.5 I44.7 I44.1 Z95.0 Z00.01 Office Visit 01/05/2018 2:00p [facility] Jaclyn Hartley M.D. 18166 I10 E78.2 F41.9 G47.30 J45.909 L20.9 J30.9 I25.10 J44.9 M15.9 N40.1 C44.629 H81.13 R55 I49.5 I44.7 I44.1 Z95.0 Office Visit 12/28/2017 10:00a [facility] Jaclyn Hartley M.D. 29100 I10 E78.2 F41.9 G47.30 J45.909 L20.9 J30.9 Z68.27 I25.10 J44.9 M15.9 N40.1 C44.629 H81.13 R55 I49.5 I44.7 I44.1 Z95.0 Z00.01 Office Visit 12/16/2017 9:45a [facility] Jaclyn Hartley M.D. 42456 I10 E78.2 F41.9 G47.30 J45.909 L20.9 J30.9 I25.10 J44.9 M15.9 N40.1 C44.629 H81.13 R55 Office Visit 08/25/2017 3:30p [facility] Jaclyn Hartley M.D. 72974 I10 E78.2 F41.9 G47.30 J45.909 L20.9 J30.9 I25.10 J44.9 M15.9 N40.1 C44.629 H92.02 H66.92 H81.13 Z23 Office Visit 08/11/2017 2:15p [facility] Jaclyn Hartley M.D. 23413 I10 E78.2 F41.9 G47.30 J45.909 L20.9 J30.9 I25.10 J44.9 M15.9 C44.629 H92.02 H66.92 H81.13 N40.1 Office Visit 01/21/2017 11:00a [facility] Jaclyn Hartley M.D. 00987 J20.9 J01.40 H66.93 R05 R06.02 R09.81 I10 E78.2 F41.9 G47.30 J45.909 L20.9 J30.9 I25.10 J44.9 M15.9 C44.629 Office Visit 09/23/2016 9:30a [facility] Jaclyn Hartley M.D. 28779 I10 E78.2 F41.9 G47.30 J45.909 L20.9 J30.9 I25.10 J44.9 M15.9 C44.629 Z23 Office Visit 09/09/2016 9:15a [facility] Jaclyn Hartley M.D. 17786 I10 E78.2 F41.9 G47.30 J45.909 L20.9 J30.9 I25.10 J44.9 M15.9 C44.629 Office Visit 08/28/2016 10:00a [facility] Jaclyn Hartley M.D. 85929 I10 E78.2 F41.9 G47.30 J45.909 L20.9 J30.9 I25.10 J44.9 Office Visit 07/25/2016 11:00a [facility] Jaclyn Hartley M.D. 29901 H66.93 J20.9 R06.02 R05 R09.81 I10 E78.2 G47.30 F41.9 J45.909 L20.9 J30.9 I25.10 J44.9 Z23 Office Visit 07/11/2016 11:30a [facility] Jaclyn Hartley M.D. 98011 H66.93 J20.9 R06.02 R05 R09.81 I10 E78.2 G47.30 F41.9 J45.909 L20.9 J30.9 I25.10 J44.9 Office Visit 07/03/2016 9:15a [facility] Jaclyn Hartley M.D. 23721 R06.02 R05 R09.81 L03.116 I10 E78.2 G47.30 F41.9 J45.909 L20.9 J30.9 I25.10 J20.9 H66.93 Office Visit 06/23/2016 11:30a [facility] Gurmeet Malik [facility] [address]06[address] L03.116 Office Visit 10/12/2015 11:00a [facility] Jaclyn Hartley M.D. 16022 R51 R11.0 R42 I10 L03.211 E78.2 G47.30 F41.9 J45.909 L20.9 J30.9 I25.10 Z23 S06.0x0A Office Visit 09/03/2015 3:00p [facility] Jaclyn Hartley M.D. 40834 Z23 R05 R06.02 J18.8 I10 E78.2 G47.30 F41.9 J45.909 L20.9 J30.9 I25.10 J06.9 Office Visit 08/30/2015 10:15a Gurmeet Montanez [facility] 79487 J06.9 R05 J30.2 J01.80 Office Visit 11/10/2014 3:30p [facility] Gurmeet Malik [facility] 70638 465.9 715.00 Office Visit 08/11/2014 12:15p [facility] Jaclyn Hartley M.D. 59892 465.9 785.6 388.70 478.19 V04.81 Office Visit 03/06/2014 10:15a [facility] Jaclyn Hartley M.D. 53866 786.2 786.05 724.1 414.01 780.79 300.00 401.1 780.57 Office Visit 02/28/2014 3:30p [facility] Jaclyn Hartley M.D. 93780 786.2 786.05 724.1 414.01 780.79 300.00 401.1 Office Visit 10/25/2013 10:30a [facility] Adriana Quispe [facility] 44960 372.00 373.11 Office Visit 08/17/2013 8:45a [facility] Adriana Quispe SAFETY CONSULTANT 18317 600.00 272.2 414.01 780.79 300.00 Office Visit 08/10/2013 10:15a [facility] Adriana Quispe SAFETY CONSULTANT 54999 600.00 272.2 414.01 780.79 300.00 Office Visit 08/03/2013 10:00a [facility] Adriana Quispe SAFETY CONSULTANT 33916 V70.0 414.01 780.79 300.00 272.2 600.00 Office Visit 11/13/2011 9:15a [facility] Jaclyn Hartley M.D. 17271 682.8 692.9 599.70 Office Visit 05/20/2011 2:45p [facility] Jaclyn Hartley M.D. 43897 789.07 Office Visit 01/16/2011 10:30a [facility] Jaclyn Hartley M.D. 10795 414.01 682.9 691.8 782.1 Office Visit 10/14/2010 10:45a [facility] Jaclyn Hartley M.D. 52467 414.01 786.59 Office Visit 09/19/2010 3:00p [facility] Jaclyn Hartley M.D. 44766 414.01 401.1 272.2 786.59 Office Visit 08/29/2010 10:15a [facility] Jaclyn Hartley M.D. 99110 414.01 401.1 272.2 600.00 389.8 Office Visit 05/09/2010 9:30a [facility] Gurmeet Malik [facility] 84735 414.01 272.2 Plan of Care Future Appointment(s):06/14/2018 8:45 am - Jaclyn Hartley M.D. at [place] [id number]/24/2018 - Jaclyn Hartley M.D.I10 Essential (primary) hypertensionComments:CHECK BP TIW ( PRN)F/U LABDIET AND FLUID COUNSELING LOW SODIUM DIETWT LOSSF/U LAB USE MANUAL BP MACHINEFollow up:3 weeks.E78.2 Mixed hyperlipidemiaComments:DIET REVIEWED CONTINUE DIETWT LOSSF/U LAB FBWF41.9 Anxiety disorder, unspecifiedComments:COUNCELLING AND REASSURANCE RELAXATION TECHNIQUES DISCUSSEDCOUNSELED RE: STRESSORS IN LIFE AVOID ALLENERGY/HIGH CAFFEINE AZMENJU79.30 Sleep apnea, unspecifiedComments:OBSERVE FOR NOWWT LOSSJ45.909 Unspecified asthma, uncomplicatedComments:MDI / NEBULIZER TX PRN AVOID EXPOSURE TO SMOKING OR IZBDHR29.9 Atopic dermatitis, unspecifiedComments: SKIN CARE INSTRUCTIONS LOTION OR BABY OIL 2-3 APPLICATION PER DAYUSE MOISTURIZING SOAPAVOID PROLONGED WATER EXPOSUREAVOID USING HOT WATER IN SFFXGTP97.9 Allergic rhinitis, unspecifiedComments:INCREASE PO FLUID USE ANTIHISTAMINE PRN SECOND HAND SMOKING FGTZQBBSRS56.10 Athscl heart disease of tangirnaq coronary artery w/o ang pctrsComments:F/U WITH CARDIOLOGY CONTINUE WITH RX AND F/U LABJ44.9 Chronic obstructive pulmonary disease, unspecifiedComments: INCREASE PO FLUIDREST NEB OR MDI AND /OR WMWSNHN83.9 Polyosteoarthritis, unspecifiedComments:EXERCISE/HEAT/MESSAGETYLENOL OR MOTRIN PRNAVOID HEAVY LIFTINGWT LOSSN40.1 Benign prostatic hyperplasia with lower urinary tract sympComments:KYIFFROL17.629 Squamous cell carcinoma skin/ left upper limb, inc shoulderComments:S/P EXICION WITH CLEAR ZYWOQDLT58.13 Benign paroxysmal vertigo , bilateralComments:GHOCRPT26 Syncope and collapseComments:OBSERVE SAFETYCOUNCELLING AND QZYUSLRSSRLU04.5 Sick sinus syndromeComments:S/P PACEMAKERSTABLE F/U WITH QOYSRVCWBRM52.7 Left bundle-branch block, unspecifiedComments:STABLE/OBSERVE F/U WITH EUMWVXLCJEK65.1 Atrioventricular block, second degreeComments:STABLE/OBSERVE F/U WITH WISMNFYCNAY26.0 Presence of cardiac pacemakerComments:F/U WITH ESNWACZALPI97.9 Vitamin D deficiency, unspecifiedComments:INCREASE EXPOSURE TO SUNREVIEW OF DIETR73.01 Impaired fasting glucoseComments:F/U HGAICFS QAC AN HS PRNLOW GLUCOSE DIET
--- NOTE | 2018-06-02 10:33 | ED ---
Dizziness - HPI Summary HPI Summary: This is Rubi guzman, documenting for attending, Del Prado MD. This patient is a 72 year old M BIBA to [facility] accompanied by his with a chief complaint of a ten minute episode of lightheadedness with diaphoresis occurring this afternoon after walking through a metal detectors about four times today. Patient had a pacemaker placed in December of 2017, with recent changes to the settings on 05/27/18. He states after feeling lightheaded he walked outside and sat down and started to feel better. He states symptoms resolved and then returned temporarily while in the ED. Denies CP, palpitations , nausea, dizziness, changes in caffeine intake, and recent illness. PMHx includes A-fib and CAD. Medications include Plavix and a Beta goldy. - History Of Current Complaint Chief Complaint: EDDizziness Stated Complaint: PACEMAKER ISSUE Time Seen by Provider: 06/02/18 10:06 Hx Obtained From: Patient Onset/Duration: Resolved, Suddenly Timing: Intermittent Episode Lasting - 10 minutes Severity Initially: Moderate Severity Currently: None Character: Lightheaded Aggravating Factor(s): Other - walk through metal detector Alleviating Factor(s): Lying Down Associated Signs And Symptoms: Positive: Diaphoresis. Negative: Chest Pain, SOB , Palpitations, Change In Diet, Fever, Chills - Allergies/Home Medications Allergies/Adverse Reactions: Allergies Allergy/AdvReac Type Severity Reaction Status Date / Time aspirin Allergy See Comment Verified 06/02/18 09:58 Home Medications: Home Medications Metoprolol Succinate XL TAB* [Toprol XL TAB*] 12.5 mg PO QAM 06/02/18 [History Confirmed 06/02/18] PMH/Surg Hx/FS Hx/Imm Hx Endocrine/Hematology History: Denies: Hx Anticoagulant Therapy, Hx Blood Disorders, Hx Diabetes Cardiovascular History: Reports: Hx Coronary Artery Disease, Other Cardiovascular Problems/Disorders - hardening of the arteries Denies: Hx Angioplasty, Hx Cardiac Arrest, Hx Hypertension, Hx Pacemaker/ICD , Hx Rheumatic Fever Respiratory History: Denies: Hx Bronchopulmonary Dysplasia, Hx Chronic Obstructive Pulmonary Disease (COPD), Hx Pulmonary Embolism, Hx Seasonal Allergies GI History: Denies: Hx Crohn's Disease, Hx Gastroesophageal Reflux Disease, Hx Gastrointestinal Bleed, Hx Hiatal Hernia, Hx Pyloric Stenosis History: Denies: Hx Benign Prostatic Hyperplasia, Hx Kidney Infection Musculoskeletal History: Denies: Hx Congenital Bone Abnormalities, Hx Orthopedic Injury, Hx Osteoporosis, Hx Tendonitis Sensory History: Reports: Hx Contacts or Glasses - Reading Denies: Hx Eye Injury, Hx Glaucoma, Hx Hearing Aid Opthamlomology History: Reports: Hx Contacts or Glasses - Reading Denies: Hx Eye Injury, Hx Glaucoma Neurological History: Denies: Hx Headaches, Hx Nerve Disease, Other Neuro Impairments/Disorders Psychiatric History: Denies: Hx Autism, Hx Oppositional [place] Disorder, Hx Community Mental Health Tx, Hx Schizophrenia - Cancer History Hx Palliative Cancer Treatment: No - Surgical History Hx Anesthesia Reactions: No Infectious Disease History: No Infectious Disease History: Denies: Hx of Known/Suspected MRSA, Hx Known/Suspected VRSA, Traveled Outside the [place] in Last 30 Days - Family History Known Family History: Negative: Diabetes - Social History Alcohol Use: Occasionally Substance Use Type: Reports: None Hx Tobacco Use: No Smoking Status (MU): Former Smoker Review of Systems Positive: Skin Diaphoresis, Other - lightheadedness. Negative: Fever, Chills Negative: Erythema Negative: Sore Throat Negative: Palpitations, Chest Pain Negative: Shortness Of Breath, Cough Negative: Abdominal Pain, Vomiting, Nausea Negative: dysuria, hematuria Negative: Myalgia, Edema Negative: Headache All Other Systems Reviewed And Are Negative: Yes Physical Exam - Summary Physical Exam Summary: Constitutional: Well-developed, Well-nourished, Alert. (-) Distressed Skin: Warm, Dry HENT: Normocephalic; Atraumatic Eyes: Conjunctiva normal Neck: Musculoskeletal ROM normal neck. (-) JVD, (-) Stridor, (-) Tracheal deviation Cardio: Rhythm regular, rate normal, Heart sounds normal; Intact distal pulses; The pedal pulses are 2+ and symmetric. Radial pulses are 2+ and symmetric. (-) Murmur Pulmonary/Chest wall: Effort normal. (-) Respiratory distress, (-) Wheezes, (-) Rales Abd: Soft, (-), epigastric tenderness, (-) Distension, (-) Guarding, (-) Rebound Musculoskeletal: (-) Edema Lymph: (-) Cervical adenopathy Neuro: Alert, Oriented x3 Psych: Mood and affect Normal Triage Information Reviewed: Yes Vital Signs On Initial Exam: Initial Vitals Temp Pulse Resp BP Pulse Ox 98.1 F 66 18 137/87 98 06/02/18 09:50 06/02/18 09:50 06/02/18 09:50 06/02/18 09:50 06/02/18 09:50 Vital Signs Reviewed: Yes Diagnostics - Vital Signs Vital Signs Temp Pulse Resp BP Pulse Ox 06/02/18 09:56 66 19 99 06/02/18 09:55 67 14 137/87 98 06/02/18 09:50 98.1 F 66 18 137/87 98 - Laboratory Result Diagrams: 06/02/18 11:05 06/02/18 11:05 Lab Statement: Any lab studies that have been ordered have been reviewed, and results considered in the medical decision making process. - Radiology CXR Radiology Interpretation Completed By: Radiologist - NO ACTIVE CARDIOPULMONARY DISEASE. ED Physician has reviewed this report. - EKG 10:09 Cardiac Rate: NL - 63 BPM EKG Interpretation: paced Dizzy Course/Dx - Course Course Of Treatment: 72 [facility] his with a chief complaint of a ten minute episode of lightheadedness with diaphoresis occurring this afternoon after walking through a metal detectors about four times today. Patient had a pacemaker placed in December of 2017, with recent changes to the settings on 05/27/18. He states after feeling lightheaded he walked outside and sat down and started to feel better. He states symptoms resolved and then returned temporarily while in the ED. Denies CP, palpitations , nausea, dizziness, changes in caffeine intake, and recent illness. Pacemaker was interrogated, revealing no events recorded today. Dr. Ziegler was consulted, and agreed to see patient in ED. Patient was evaluated and wants to go home. Hospitalist agrees. Patient will set up appointment to see Dr. Ventura, his branch employment coordinator in the next two days. - Diagnoses Provider Diagnoses: Dizziness - Provider Notifications Discussed Care Of Patient With: Natalia Ziegler - hospitalist Time Discussed With Above Provider: 14:00 Instructed by Provider To: MD Will See In ED - Pt evaluated by hospitalist, who agrees to discharge Discharge - Discharge Plan Condition: Stable Disposition: HOME Patient Education Materials: Dizziness (ED) Referrals: Jaclyn Hartley MD [Primary Care Provider] - Gael Ventura MD [Medical Doctor] - 2 Days (Follow up with Dr. Ventura 2-3 days. ) Additional Instructions: RETURN TO THE EMERGENCY DEPARTMENT FOR CHANGING OR WORSENING SYMPTOMS. Consult Consult: At 13:44, pacer patient care technician instructor reports there were no events recorded today.
[2018-06-02 11:18] LABS: ABS Basophils 0 10^3/ul (0-0.2); ABS Eosinophils 0.1 10^3/ul (0-0.6); ABS Lymphocytes 0.7 10^3/ul (1.0-4.8); ABS Monocytes 0.4 10^3/ul (0-0.8); ABS Neutrophils 3.7 10^3/ul (1.5-7.7); ABS Nucleated RBC 0 10^3/ul; Eosinophil % 2.3 % (0-6); Hematocrit 45 % (42-52); Hemoglobin 15.1 g/dl (14.0-18.0); Lymphocyte % 14.1 % (25-47); Mean Corpuscular HGB Conc 33 g/dl (31-36); Mean Corpuscular Hemoglobin 30 pg (27-31); Mean Corpuscular Volume 91 fL (80-94); Mean Platelet Volume 8.6 um3 (7.4-10.4); Nucleated Red Blood Cells % 0.1; Platelet Count 199 10^3/ul (150-450); Red Blood Count 4.97 10^6/ul (4.00-5.40); Red Cell Distribution Width 14 % (10.5-15)
--- NOTE | 2018-06-02 11:22 | RAD ---
HISTORY: DIAPHORESIS COMPARISONS: December 22, 2017 VIEWS: 1: frontal portable view of the chest at 11:07 AM FINDINGS: LINES AND TUBES: A left-sided pacemaker is noted.. CARDIOMEDIASTINAL SILHOUETTE: The cardiomediastinal silhouette is normal for portable technique. PLEURA: The costophrenic angles are sharp. No pleural abnormalities are noted. LUNG PARENCHYMA: The lungs are clear. ABDOMEN: The upper abdomen is clear. There is no subphrenic gas. BONES AND SOFT TISSUES: No bone or soft tissue abnormalities are noted. IMPRESSION: NO ACTIVE CARDIOPULMONARY DISEASE.
[2018-06-02 11:33] LABS: EGFR Non-African American 82.9 (>60)
[2018-06-02 16:59] VITALS: BP 123/71
--- NOTE | 2018-06-03 01:54 | CONS ---
CC: Dr. Hartley; Dr. Ventura * CONSULTATION REPORT: DATE OF CONSULT: 06/02/18 - EMERGENCY DEPT PATIENT OF: Dr. Del Prado from the emergency department. REFERRED TO: Natalia Ziegler DO PRIMARY CARE PROVIDER: Dr. Hartley. SUPPLY CHAIN GENERALIST: russell Vera. CHIEF COMPLAINT: Lightheadedness and diaphoresis. HISTORY OF PRESENT ILLNESS: Mr. Mars is a pleasant 72-year-old gentleman, who has past medical history significant for coronary artery disease, second-third degree heart block for which he recently had a pacemaker placed back in December 2017, who reports an episode of lightheadedness and diaphoresis earlier today. According to the , the patient apparently went through a metal detector at the [facility] 4 times that she think could have interfered with the output of his pacemaker. He was alarmed about this and at the meantime , he noticed some lightheadedness and associated diaphoresis, but denies any syncope, chest pain, headache, or any other associated symptoms. The patient had history of altered mental status related to his second-degree heart block prior to his pacemaker placement back in December 2017, by Dr. Daniel amaya. He reports that he saw Dr. Ventura in his office last week and had a Holter monitor put in for recording and he did some "tweaking" of the pacemaker, but denies any similar symptoms of lightheadedness in the past. Given his most recent history as well as current symptoms, he was sent to the emergency room for evaluation. His laboratory workup was essentially normal. There was 2 flat troponins drawn. An EKG showed a normal paced rhythm with no evidence of ST changes. The patient also had his pacemaker interrogated and was normal recording, showed no episodes of pause or any other abnormalities. We were initially asked to see the patient to consider admission for observation; however, the patient himself reports feeling well and denies any symptoms since he presented to the emergency room. I have discussed the case with my attending , Dr. Ziegler as well as Dr. Prado, and the decision was made for him to be discharged home and he will follow up with Dr. Ventura in the next day or two, and he was strongly advised to return if any recurrent symptoms. PAST MEDICAL HISTORY: As mentioned above, significant for coronary artery disease, obstructive sleep apnea, history of migraines, and second-degree heart block for which he had a pacemaker placement in December 2017. PAST SURGICAL HISTORY: Significant for bilateral inguinal hernia repair, right hand surgery, and pacemaker placement in December 2017. CURRENT MEDICATIONS: His medications at home include: 1. Plavix 75 mg p.o. daily. 2. Metoprolol XL 12.5 mg p.o. daily. 3. Zocor 20 mg p.o. nightly. ALLERGIES: He is allergic to ASPIRIN. FAMILY HISTORY: Reviewed and noncontributory. SOCIAL HISTORY: The patient is . He smokes an occasional cigar and drinks 1 alcoholic beverage a day. 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 He is retired. to his Erika, who carries the healthcare proxy. REVIEW OF SYSTEMS: See HPI. Otherwise, 14 points review of systems were examined and were essentially negative. PHYSICAL EXAM: General: He is a pleasant, healthy-appearing, older male, in no acute distress or discomfort at the time of consultation. Vitals: Revealed blood pressure of 124/79, pulse of 64, temperature of 98.1, respirations of 15 with O2 sat of 98% on room air. HEENT: Head is normocephalic, atraumatic. Sclerae anicteric. PERRLA. EOMs intact. Oropharynx is pink and moist. Neck: Supple. Trachea midline. No cervical adenopathy, thyromegaly or JVD. Lungs: Clear to auscultation bilaterally. Heart: Regular rate and rhythm. Normal S1 and S2 without rubs, murmurs or gallops. Back: With normal curvature and no CVA tenderness. Abdomen: Soft, nontender, and nondistended. No hernias, masses or hepatosplenomegaly. Extremities: Without cyanosis, clubbing or edema. Neurologic: He is awake, alert, and oriented x3. The rest of neurologic exam was essentially negative. Rectal exam deferred at this time. LABORATORY WORKUP: Laboratory workup: CBC with white count of 5000, hemoglobin 15.1, hematocrit of 45, and platelets of 199. Chemistry panel with sodium of 138, potassium 4.1, chloride 103, CO2 27, BUN of 12, and creatinine of 0.9. His glucose is 140. LFTs within normal limits. Troponin drawn 3 hours apart was 0.0 on both occasions. ACCESSORY DIAGNOSTIC DATA: Chest x-ray with no acute cardiopulmonary changes. An EKG showed a paced rhythm with no ST changes. ASSESSMENT AND PLAN: As mentioned above, I had a lengthy discussion with the patient and his . He appears to be comfortable at this time and would like to go home. I have discussed the case with my attending as well as Dr. Prado and the plan was made for the patient to be discharged to home, continue his regular medication. The patient himself said that he has been exerting himself too much in the past week with recent that he helped to put together and he knows that he physically and mentally was exhausted and he contribute that to his recent event of lightheadedness. He was advised to take it easy at home and to return to the emergency room if any recurrent symptoms suggesting lightheadedness or syncope. He was also strongly encouraged to follow up with Dr. Ventura in the next day or two and we will plan for it accordingly. Thank you for this consultation. UMA CASTANEDA [id number]/[facility] #: [id number] JEOVANY
== END 2018-06-02 16:58 | disposition home or self-care (01) ==
LOC: ED 09:47
DX: R42 Dizziness and giddiness (principal); I25.10 Atherosclerotic heart disease of native coronary artery without angina pectoris; I48.91 Unspecified atrial fibrillation; Z79.02 Long term (current) use of antithrombotics/antiplatelets; Z87.891 Personal history of nicotine dependence
CPT/HCPCS: 36415; 71045; 80053; 83605; 84484; 85025; 93005; 99283